=== PATIENT | male | born 1980 | race Caucasian/White ===

== ENCOUNTER → 2016-11-06 | Outpatient (CLI) | payer OTHER ==
--- NOTE | 2016-11-06 13:51 | RAD ---
HISTORY: Dislocated arm, complained of pain and grinding nor is when moving Study: Three views right shoulder Comparison: None Findings: Normal alignment. No acute fracture or dislocation. The soft tissues are unremarkable. The exam is l imited by lack of a true axillary view. There is an attempted scapular Y-view that appears unremarkab le. IMPRESSION: 1. No acute osseous abnormality. Reported By:
== END ==
LOC: RAD 13:10
PROVIDERS: ATTEND Internal Medicine
DX: S43.004A Unspecified dislocation of right shoulder joint, initial encounter (principal); X58.XXXA Exposure to other specified factors, initial encounter
CPT/HCPCS: 73030

== ENCOUNTER 2019-05-01 19:31 | Inpatient (IN) ==
[2019-05-01] MEDS ORDERED: PHARMACY CONSULT - VANCOMYCIN XX SCH (21:00)
[2019-05-01 21:56] LABS: BASOPHILS # (AUTO) 0.1 X10^3/uL (0.0-0.1); BASOPHILS % (AUTO) 0.7 % (0.2-1.0); EOSINOPHILS # (AUTO) 0.6 x10^3/uL (0.0-0.2); EOSINOPHILS % (AUTO) 7.2 % (0.9-2.9); HEMATOCRIT 33.8 % (42.0-54.0); HEMOGLOBIN 11.8 g/dL (13.5-18.0); LYMPHOCYTES % (AUTO) 22.6 % (21.0-51.0); MEAN CORPUSCULAR HEMOGLOBIN 30.8 pg (27.0-34.0); MEAN CORPUSCULAR HGB CONC 34.9 g/dL (33.0-35.0); MEAN CORPUSCULAR VOLUME 88.3 fL (80.0-100.0); MEAN PLATELET VOLUME 6.5 fL (7.4-11.0); MONOCYTES # (AUTO) 0.6 x10^3/uL (0.3-0.8); NEUTROPHILS # (AUTO) 5.6 x10^3/uL (2.2-4.8); NEUTROPHILS % (AUTO) 62.5 % (42.0-75.0); PLATELET COUNT 344 X10^3/uL (150.0-450.0); RED BLOOD COUNT 3.83 X10^6/uL (4.7-6.0); RED CELL DISTRIBUTION WIDTH 14.2 % (11.6-16.5)
[2019-05-01] MEDS ORDERED: VANCOMYCIN HCL IV ONE (22:00)
[2019-05-01] MEDS ORDERED: DEXTROSE 5% IV ONE (22:00)
[2019-05-01 22:07] LABS: ALANINE AMINOTRANSFERASE 29 Units/L (12-78); ALKALINE PHOSPHATASE 92 Units/L (46-116); ASPARTATE AMINO TRANSFERASE 23 Units/L (15-37); BLOOD UREA NITROGEN 12 mg/dL (7-18); CARBON DIOXIDE 28.1 mmol/L (21-32); CHLORIDE 102 mmol/L (98-107); COR CA(FOR HYPOALB) 9.8 mg/dL (8.5-10.1); CREATININE 1.28 mg/dL (0.70-1.30); SODIUM 138 mmol/L (136-145); TOTAL PROTEIN 7.4 g/dL (6.4-8.2); eGFR NON BLACK RACES > 60 (>60)
[2019-05-01] MEDS: NS 1000 ML 1,000 ML IV SCH (23:25)
[2019-05-02] MEDS ORDERED: ZOSYN VIAL 4.5 GRAMS 4.5 G in NS 100 ML IV + SPIKE MINIBAG* 100 ML IV SCH ×2
[2019-05-02] MEDS ORDERED: RESTORIL CAP 15 MG PO ONE (01:21)
[2019-05-02] MEDS ORDERED: NORCO 5/325 MG TAB ONE (01:21)
[2019-05-02] MEDS: NORCO 5/325 MG TAB PO PRN ×2 (01:25→07:30)
[2019-05-02] MEDS: RESTORIL CAP 15 MG PO PRN (01:25)
[2019-05-02 04:16] VITALS: BMI 31.2
[2019-05-02 04:44] LABS: BASOPHILS % (AUTO) 0.6 % (0.2-1.0); EOSINOPHILS # (AUTO) 0.7 x10^3/uL (0.0-0.2); EOSINOPHILS % (AUTO) 8.6 % (0.9-2.9); HEMATOCRIT 31.5 % (42.0-54.0); HEMOGLOBIN 10.8 g/dL (13.5-18.0); LYMPHOCYTES # (AUTO) 1.7 X10^3/uL (1.3-2.9); LYMPHOCYTES % (AUTO) 22.6 % (21.0-51.0); MEAN CORPUSCULAR HEMOGLOBIN 30.1 pg (27.0-34.0); MEAN CORPUSCULAR HGB CONC 34.4 g/dL (33.0-35.0); MEAN CORPUSCULAR VOLUME 87.5 fL (80.0-100.0); MEAN PLATELET VOLUME 6.5 fL (7.4-11.0); MONOCYTES # (AUTO) 0.6 x10^3/uL (0.3-0.8); NEUTROPHILS # (AUTO) 4.6 x10^3/uL (2.2-4.8); NEUTROPHILS % (AUTO) 60.2 % (42.0-75.0); PLATELET COUNT 327 X10^3/uL (150.0-450.0); RED CELL DISTRIBUTION WIDTH 14.2 % (11.6-16.5); WHITE BLOOD COUNT 7.6 X10^3/uL (3.6-10.0)
[2019-05-02 04:53] LABS: ALANINE AMINOTRANSFERASE 28 Units/L (12-78); ALBUMIN 2.7 g/dL (3.4-5.0); ALKALINE PHOSPHATASE 88 Units/L (46-116); ASPARTATE AMINO TRANSFERASE 21 Units/L (15-37); BLOOD UREA NITROGEN 12 mg/dL (7-18); CALCIUM 8.5 mg/dL (8.5-10.1); CHLORIDE 101 mmol/L (98-107); COR CA(FOR HYPOALB) 9.5 mg/dL (8.5-10.1); CREATININE 1.13 mg/dL (0.70-1.30); SODIUM 137 mmol/L (136-145); TOTAL PROTEIN 6.8 g/dL (6.4-8.2); eGFR NON BLACK RACES > 60 (>60)
[2019-05-02] MEDS ORDERED: KLOR-CON PO PRN (05:13)
[2019-05-02] MEDS ORDERED: POTASSIUM CHL 60 MEQ/NS 0.45% 500 ML IV PRN (05:13)
[2019-05-02] MEDS ORDERED: POTASSIUM CHLORIDE LIQ 20 MEQ UDC PO PRN (05:13)
[2019-05-02] MEDS ORDERED: K-RIDER 10 MEQ/NS 100 ML 10 MEQ/100 ML BAG IV PRN (05:13)
[2019-05-02] MEDS ORDERED: MAGNESIUM SULFATE 1 GRAM/100 mL PREMIX 1 GM/100 ML BAG IV PRN (05:13)
[2019-05-02] MEDS ORDERED: MICRO K EXTEN CAP 10 MEQ PO PRN (05:13)
[2019-05-02] MEDS ORDERED: POTASSIUM CHL 40 MEQ/NS 0.45% 500 ML IV PRN (05:13)
[2019-05-02] MEDS: K-DUR TAB 20 MEQ PO PRN (06:23)
[2019-05-02] MEDS ORDERED: NS 250 ML IV 250 ML IV ONE (08:08)
[2019-05-02] MEDS ORDERED: VANCOMYCIN HCL ONE (08:08)
[2019-05-02] MEDS: VANCOMYCIN HCL 1 G in D5W 250 ML IV 250 ML IV SCH ×3 (08:18→22:12)
[2019-05-02] MEDS ORDERED: VANCOMYCIN HCL 250 MG, VANCOMYCIN HCL 1 G in D5W 250 ML IV 250 ML IV SCH (09:00)
[2019-05-02] MEDS ORDERED: PERCOCET TAB 5/325 MG PO PRN ×2 (12:06→12:17)
[2019-05-02] MEDS ORDERED: NORCO 5/325 MG TAB PO PRN (12:10)
[2019-05-02] MEDS: SOMA TAB 350 MG PO PRN (12:20)
[2019-05-02] MEDS: NS 1000 ML 1,000 ML IV SCH ×3 (13:11→22:15)
[2019-05-02] MEDS: LYRICA CAP 150 mg PO SCH ×2 (14:01→22:12)
[2019-05-02] MEDS: TORADOL 30 MG VIAL IVP PRN ×2 (14:54→22:16)
[2019-05-02] MEDS: WELLBUTRIN XL 150 MG (DAILY) PO SCH ×2 (14:55→22:13)
[2019-05-02] MEDS: PERCOCET TAB 5/325 MG PO PRN ×2 (14:55→19:16)
[2019-05-02] MEDS: ZOSYN VIAL 4.5 GRAMS 4.5 G in NS 100 ML IV + SPIKE MINIBAG* 100 ML IV SCH ×2 (15:36→23:45)
--- NOTE | 2019-05-02 16:55 | DR.H&P ---
H&P - History & Physical for Day of: H&P Date: 05/01/19 - Chief Complaint Chief Complaint: LEFT FOOT REDNESS, SWELLING, WOUND - History of Present Illness History of Present Illness: IS A 38 YEAR OLD PATIENT OF OURS WHO PRESENTED TO THE HOSPITAL A DIRECT ADMISSION DUE TO CELLULITIS OF THE LEFT FOOT AND ANKLE. PATIENT REPORTS THAT HE LANCED HIS FOOT IN THREE DIFFERENT PLACES DUE TO ABSCESSES THAT CAME UP. HE REPORTS TAKING BACTRIM DS BID FOR THE PAST THREE DAYS. ON ARRIVAL TO THE HOSPITAL, VITALS WERE 97.5-118-52-100%-173/93. LABS WERE OBTAINED. ABNORMAL LAB VALUES INCLUDE THE FOLLOWING: RBC 3.83, HGB 11.8, HCT 33.8, ALBUMIN 3.0. WOUND AND BLOOD CULTURES WERE OBTAINED. HE WAS STARTED ON IV ZOSYN AND IV VANCOMYCIN. HE WAS ALSO STARTED ON NORMAL SALINE AT 80 ML/HR AND TORADOL 30MG IV Q6H PRN. WE WILL RESUME HIS HOME MEDICATIONS. OTHERWISE, WE WILL FOLLOW UP WITH AM LABS AND CONTINUE TO MONITOR. - Past Surgical History Surgical History: Ortho Surgery, Other - Family History Family Medical History: Hypertension - Social History Does patient currently use any type of tobacco product: Yes Have you used tobacco products in the last 12 months: Yes Type of Tobacco Use: Smokeless Alcohol Use: None Drug Use: None - Medications Home Medications: No Known Drug Allergies Allergy (Verified 09/08/17 14:11) CONTINUE taking the following medications bupropion HCl 150 mg PO BID 05/02/19 [History] carisoprodol [Soma] 350 mg PRN PRN 05/02/19 [History] clonazepam [Klonopin] 1 mg PO BID PRN 05/02/19 [History] dextroamphetamine-amphetamine [Adderall] 20 mg BID 05/02/19 [History] duloxetine 60 mg PO QHS 05/02/19 [History] oxycodone-acetaminophen 1 tab Q4H PRN 05/02/19 [History] prazosin 1 mg PO QHS 05/02/19 [History] pregabalin [Lyrica] 150 mg PO BID 05/02/19 [History] - Review of Systems Constitutional: Weakness Eyes: No Symptoms Reported ENT: No Symptoms Reported Respiratory: No Symptoms Reported Cardiovascular: No Symptoms Reported Gastrointestinal: No Symptoms Reported Genitourinary: No Symptoms Reported Musculoskeletal: See HPI, Leg Pain (BILATERAL ), Foot Pain Skin: See HPI, Wound (LEFT FOOT/ANKLE REDNESS, SWELLING, WOUND ) Neurological: Weakness - Physical Exam Vital Signs: Temperature 98.6 F Pulse Rate [Apical] 87 Respiratory Rate 18 Blood Pressure [Right Arm] 141/88 Blood Pressure 174/100 O2 Sat by Pulse Oximetry 99 Oriented: Normal Eyes: Normal Ear: Normal Nose: Normal Throat: Normal Respiratory: Clear Throughout Cardiovascular: Normal : Normal Auscultation: Bowel Sounds: Normal Palpation: Normal Tenderness: Normal Skin: Red, Tender, Hot, Wound (LEFT FOOT/ANKLE) Musculoskeletal: Right, Left, Foot, Tender Psychiatric: Normal Mood Description: Calm Affect: Normal Speech Pattern: Clear - Assessment/Plan (1) Cellulitis of left ankle Status: Acute Plan: IV VANCOMYCIN, IV ZOSYN, NORMAL SALINE AT 80 ML/HR AND TORADOL 30MG IV Q6H PRN, CONTINUE HOME MEDS - Allergies Allergies/Adverse Reactions: Allergies Allergy/AdvReac Type Severity Reaction Status Date / Time No Known Drug Allergies Allergy Verified 09/08/17 14:11
[2019-05-03] MEDS: PERCOCET TAB 5/325 MG PO PRN ×4 (00:06→23:49)
[2019-05-03] MEDS: RESTORIL CAP 15 MG PO PRN ×2 (00:06→23:50)
[2019-05-03] MEDS: SOMA TAB 350 MG PO PRN ×2 (00:06→23:51)
[2019-05-03] MEDS: KLONOPIN TAB 1 MG PO PRN ×2 (00:06→23:49)
[2019-05-03 04:38] LABS: BASOPHILS % (AUTO) 0.7 % (0.2-1.0); EOSINOPHILS # (AUTO) 0.6 x10^3/uL (0.0-0.2); EOSINOPHILS % (AUTO) 11.1 % (0.9-2.9); HEMATOCRIT 32.6 % (42.0-54.0); HEMOGLOBIN 11.2 g/dL (13.5-18.0); LYMPHOCYTES # (AUTO) 1.5 X10^3/uL (1.3-2.9); LYMPHOCYTES % (AUTO) 26.5 % (21.0-51.0); MEAN CORPUSCULAR HGB CONC 34.3 g/dL (33.0-35.0); MEAN CORPUSCULAR VOLUME 87.4 fL (80.0-100.0); MEAN PLATELET VOLUME 6.5 fL (7.4-11.0); MONOCYTES # (AUTO) 0.5 x10^3/uL (0.3-0.8); MONOCYTES % (AUTO) 8.2 % (0.0-13.0); NEUTROPHILS % (AUTO) 53.5 % (42.0-75.0); PLATELET COUNT 380 X10^3/uL (150.0-450.0); RED BLOOD COUNT 3.73 X10^6/uL (4.7-6.0); RED CELL DISTRIBUTION WIDTH 14.3 % (11.6-16.5); WHITE BLOOD COUNT 5.6 X10^3/uL (3.6-10.0)
[2019-05-03 04:45] LABS: ALANINE AMINOTRANSFERASE 35 Units/L (12-78); ALBUMIN 2.6 g/dL (3.4-5.0); ALKALINE PHOSPHATASE 91 Units/L (46-116); ASPARTATE AMINO TRANSFERASE 25 Units/L (15-37); BLOOD UREA NITROGEN 14 mg/dL (7-18); CALCIUM 8.4 mg/dL (8.5-10.1); CARBON DIOXIDE 29.3 mmol/L (21-32); CHLORIDE 104 mmol/L (98-107); COR CA(FOR HYPOALB) 9.5 mg/dL (8.5-10.1); CREATININE 1.05 mg/dL (0.70-1.30); SODIUM 139 mmol/L (136-145); TOTAL PROTEIN 6.9 g/dL (6.4-8.2); eGFR NON BLACK RACES > 60 (>60)
[2019-05-03 04:50] LABS: VANCOMYCIN,TROUGH 12.8 ug/mL (15-20)
[2019-05-03] MEDS: TORADOL 30 MG VIAL IVP PRN ×3 (05:17→21:05)
[2019-05-03] MEDS: NS 1000 ML 1,000 ML IV SCH ×2 (05:23→17:46)
[2019-05-03] MEDS ORDERED: PHARMACY COMMENT IV NR (05:30)
[2019-05-03] MEDS: VANCOMYCIN HCL 1 G in D5W 250 ML IV 250 ML IV SCH ×3 (07:22→21:01)
[2019-05-03] MEDS: ZOSYN VIAL 4.5 GRAMS 4.5 G in NS 100 ML IV + SPIKE MINIBAG* 100 ML IV SCH ×3 (09:00→22:08)
[2019-05-03] MEDS ORDERED: HYDROCHLOROTHIAZIDE 12.5 MG CAP PO SCH (10:00)
[2019-05-03] MEDS: WELLBUTRIN XL 150 MG (DAILY) PO SCH ×2 (10:33→20:25)
[2019-05-03] MEDS: LYRICA CAP 150 mg PO SCH ×2 (10:34→20:25)
[2019-05-03] MEDS: MAXZIDE 37.5/25 MG PO SCH (10:42)
[2019-05-04] MEDS: NS 1000 ML 1,000 ML IV SCH ×2 (00:53→15:07)
[2019-05-04] MEDS: VANCOMYCIN HCL 1 G in D5W 250 ML IV 250 ML IV SCH (05:13)
[2019-05-04] MEDS: TORADOL 30 MG VIAL IVP PRN ×3 (05:50→19:15)
[2019-05-04] MEDS: ZOSYN VIAL 4.5 GRAMS 4.5 G in NS 100 ML IV + SPIKE MINIBAG* 100 ML IV SCH ×3 (06:00→22:35)
[2019-05-04 06:24] LABS: BASOPHILS % (AUTO) 0.8 % (0.2-1.0); EOSINOPHILS # (AUTO) 0.7 x10^3/uL (0.0-0.2); EOSINOPHILS % (AUTO) 11.8 % (0.9-2.9); HEMATOCRIT 34.1 % (42.0-54.0); HEMOGLOBIN 11.6 g/dL (13.5-18.0); LYMPHOCYTES # (AUTO) 2.1 X10^3/uL (1.3-2.9); LYMPHOCYTES % (AUTO) 35.3 % (21.0-51.0); MEAN CORPUSCULAR HEMOGLOBIN 29.9 pg (27.0-34.0); MEAN CORPUSCULAR HGB CONC 33.9 g/dL (33.0-35.0); MEAN CORPUSCULAR VOLUME 88.1 fL (80.0-100.0); MEAN PLATELET VOLUME 6.4 fL (7.4-11.0); MONOCYTES # (AUTO) 0.6 x10^3/uL (0.3-0.8); MONOCYTES % (AUTO) 9.8 % (0.0-13.0); NEUTROPHILS # (AUTO) 2.5 x10^3/uL (2.2-4.8); NEUTROPHILS % (AUTO) 42.3 % (42.0-75.0); PLATELET COUNT 432 X10^3/uL (150.0-450.0); RED BLOOD COUNT 3.87 X10^6/uL (4.7-6.0); RED CELL DISTRIBUTION WIDTH 14.3 % (11.6-16.5)
[2019-05-04 06:34] LABS: ALANINE AMINOTRANSFERASE 38 Units/L (12-78); ALBUMIN 2.6 g/dL (3.4-5.0); ALKALINE PHOSPHATASE 86 Units/L (46-116); ASPARTATE AMINO TRANSFERASE 25 Units/L (15-37); BLOOD UREA NITROGEN 16 mg/dL (7-18); CALCIUM 8.7 mg/dL (8.5-10.1); CARBON DIOXIDE 30.5 mmol/L (21-32); CHLORIDE 104 mmol/L (98-107); COR CA(FOR HYPOALB) 9.8 mg/dL (8.5-10.1); CREATININE 1.01 mg/dL (0.70-1.30); SODIUM 141 mmol/L (136-145); TOTAL PROTEIN 6.8 g/dL (6.4-8.2); eGFR NON BLACK RACES > 60 (>60)
[2019-05-04] MEDS: WELLBUTRIN XL 150 MG (DAILY) PO SCH ×2 (08:53→21:26)
[2019-05-04] MEDS: LYRICA CAP 150 mg PO SCH ×2 (08:53→21:26)
[2019-05-04] MEDS: MAXZIDE 37.5/25 MG PO SCH (08:53)
[2019-05-04] MEDS: PERCOCET TAB 5/325 MG PO PRN ×2 (08:54→21:26)
[2019-05-04] MEDS: K-DUR TAB 20 MEQ PO PRN (08:55)
[2019-05-04 14:09] LABS: VANCOMYCIN,TROUGH 9.8 ug/mL (15-20)
[2019-05-04] MEDS ORDERED: VANCOMYCIN HCL ONE ×3 (14:35→21:27)
[2019-05-04] MEDS: VANCOMYCIN HCL 500 MG, VANCOMYCIN HCL 1 G in D5W 250 ML IV 250 ML IV SCH ×2 (14:45→21:40)
[2019-05-04] MEDS: CYMBALTA PO SCH (21:26)
[2019-05-04] MEDS ORDERED: D5W 250 ML IV 250 ML IV ONE (21:27)
[2019-05-04] MEDS: SOMA TAB 350 MG PO PRN (22:55)
[2019-05-04] MEDS: KLONOPIN TAB 1 MG PO PRN (22:55)
[2019-05-05] MEDS: TORADOL 30 MG VIAL IVP PRN ×4 (01:31→22:04)
[2019-05-05] MEDS: NS 1000 ML 1,000 ML IV SCH ×2 (03:24→16:10)
[2019-05-05] MEDS ORDERED: VANCOMYCIN HCL ONE ×4 (05:09→14:24)
[2019-05-05] MEDS ORDERED: D5W 250 ML IV 250 ML IV ONE (05:09)
[2019-05-05] MEDS: VANCOMYCIN HCL 500 MG, VANCOMYCIN HCL 1 G in D5W 250 ML IV 250 ML IV SCH ×2 (05:18→14:00)
[2019-05-05 06:34] LABS: BASOPHILS % (AUTO) 0.8 % (0.2-1.0); EOSINOPHILS # (AUTO) 0.7 x10^3/uL (0.0-0.2); EOSINOPHILS % (AUTO) 11.8 % (0.9-2.9); HEMATOCRIT 35.5 % (42.0-54.0); HEMOGLOBIN 11.9 g/dL (13.5-18.0); LYMPHOCYTES % (AUTO) 34.6 % (21.0-51.0); MEAN CORPUSCULAR HEMOGLOBIN 29.5 pg (27.0-34.0); MEAN CORPUSCULAR HGB CONC 33.4 g/dL (33.0-35.0); MEAN CORPUSCULAR VOLUME 88.5 fL (80.0-100.0); MEAN PLATELET VOLUME 6.2 fL (7.4-11.0); MONOCYTES # (AUTO) 0.6 x10^3/uL (0.3-0.8); MONOCYTES % (AUTO) 10.2 % (0.0-13.0); NEUTROPHILS # (AUTO) 2.5 x10^3/uL (2.2-4.8); NEUTROPHILS % (AUTO) 42.6 % (42.0-75.0); PLATELET COUNT 460 X10^3/uL (150.0-450.0); RED BLOOD COUNT 4.02 X10^6/uL (4.7-6.0); RED CELL DISTRIBUTION WIDTH 14.7 % (11.6-16.5); WHITE BLOOD COUNT 5.9 X10^3/uL (3.6-10.0)
[2019-05-05] MEDS: ZOSYN VIAL 4.5 GRAMS 4.5 G in NS 100 ML IV + SPIKE MINIBAG* 100 ML IV SCH ×3 (06:41→23:27)
[2019-05-05] MEDS ORDERED: NS 250 ML IV 250 ML IV ONE ×2 (06:46→14:24)
[2019-05-05 06:55] LABS: ALANINE AMINOTRANSFERASE 45 Units/L (12-78); ALBUMIN 2.7 g/dL (3.4-5.0); ALKALINE PHOSPHATASE 79 Units/L (46-116); ASPARTATE AMINO TRANSFERASE 26 Units/L (15-37); BLOOD UREA NITROGEN 18 mg/dL (7-18); CALCIUM 8.7 mg/dL (8.5-10.1); CARBON DIOXIDE 28.8 mmol/L (21-32); CHLORIDE 103 mmol/L (98-107); COR CA(FOR HYPOALB) 9.7 mg/dL (8.5-10.1); CREATININE 1.17 mg/dL (0.70-1.30); SODIUM 140 mmol/L (136-145); TOTAL PROTEIN 6.9 g/dL (6.4-8.2); eGFR NON BLACK RACES > 60 (>60)
[2019-05-05] MEDS: TAB-A-VITE PO SCH (08:46)
[2019-05-05] MEDS: WELLBUTRIN XL 150 MG (DAILY) PO SCH ×2 (08:46→21:18)
[2019-05-05] MEDS: MAXZIDE 37.5/25 MG PO SCH (08:46)
[2019-05-05] MEDS: LYRICA CAP 150 mg PO SCH ×2 (08:46→21:18)
[2019-05-05] MEDS: PERCOCET TAB 5/325 MG PO PRN ×2 (13:09→18:00)
[2019-05-05] MEDS ORDERED: PHARMACY COMMENT IV NR (13:30)
[2019-05-05 14:04] LABS: CREATININE 1.06 mg/dL (0.70-1.30)
--- NOTE | 2019-05-05 14:48 | PCM.PROG ---
Progress Note - Progress Note for Day of Date of Exam: 05/03/19 - Subjective Subjective: IS BEING TREATED FOR LEFT FOOT/ANKLE CELLULITIS. TODAY, HE IS ALERT AND ORIENTED, LYING IN BED ON MORNING ROUNDS. HE CONTINUES WITH ERYTHEMA AND 3+ PITTING EDEMA TO THE LEFT FOOT AND ANKLE. THERE IS SEROSANGUINEOUS DRAINAGE NOTED TO ALL WOUNDS. HIS VITALS THIS MORNING ARE: 97.6-92-18-98%-180/99. LABS WERE OBTAINED. ABNORMAL LAB VALUES INCLUDE THE FOLLOWING: RBC 3.73, HGB 11.2, HCT 32.6, GLUCOSE 101, CALCIUM 8.4, ALBUMIN 2.6. WOUND AND BLOOD CULTURES ARE PENDING. HE IS CURRENTLY RECEIVING IV VANCOMYCIN, IV ZOSYN, NS AT 80 ML/HR, TORADOL 30MG IV Q6H PRN, AND HOME MEDICATIONS WERE RESUMED. WE WILL CONTINUE WITH CURRENT PLAN OF CARE TODAY. OTHERWISE, WE PLAN TO FOLLOW UP WITH AM LABS AND CONTINUE TO MONITOR. - Past Medical Family Social History Past Med/Fam/Surg Hx: No changes since H&P Allergies: Allergies No Known Drug Allergies Allergy (Verified 09/08/17 14:11) - Review of Systems ROS: No change since H&P - Vital Signs and I&O's Vital Signs: Temperature 98.2 F Pulse Rate [Apical] 94 Respiratory Rate 20 Blood Pressure [Left Arm] 162/93 Blood Pressure [Right Arm] 163/105 Blood Pressure 174/100 O2 Sat by Pulse Oximetry 96 Intake and Output: Intake & Output 05/03/19 05/04/19 05/05/19 05/06/19 11:59 11:59 11:59 11:59 Intake Total 2280 / 2280 5322 / 5322 6340 / 6340 920 / 920 Balance 2280 / 2280 5322 / 5322 6340 / 6340 920 / 920 - Physical Exam Oriented: Normal Eyes: Normal Ear: Normal Nose: Normal Throat: Normal Respiratory: Normal, Generalized Cardiovascular: Normal, Edema : Normal Auscultation: Bowel Sounds: Normal Palpation: Normal Tenderness: Normal Skin: Red, Tender, Hot, Wound (LEFT FOOT/ANKLE) Musculoskeletal: Right, Left, Foot, Tender Psychiatric: Normal Mood Description: Calm Affect: Normal Speech Pattern: Clear - Laboratory and Diagnostics Result Diagrams: 05/05/19 06:02 05/05/19 13:07 Labs: 05/01/19 23:10 Foot - Left Gram Stain - Final 05/01/19 23:10 Foot - Left Wound Culture - Preliminary 05/01/19 21:35 Blood Blood Culture - Preliminary 05/01/19 21:30 Blood Blood Culture - Preliminary Laboratory WBC 5.9 X10^3/uL (3.6-10.0) 05/05/19 06:02 RBC 4.02 X10^6/uL (4.7-6.0) L 05/05/19 06:02 Hgb 11.9 g/dL (13.5-18.0) L 05/05/19 06:02 Hct 35.5 % (42.0-54.0) L 05/05/19 06:02 MCV 88.5 fL (80.0-100.0) 05/05/19 06:02 MCH 29.5 pg (27.0-34.0) 05/05/19 06:02 MCHC 33.4 g/dL (33.0-35.0) 05/05/19 06:02 RDW 14.7 % (11.6-16.5) 05/05/19 06:02 Plt Count 460 X10^3/uL (150.0-450.0) H 05/05/19 06:02 MPV 6.2 fL (7.4-11.0) L 05/05/19 06:02 Neut % (Auto) 42.6 % (42.0-75.0) 05/05/19 06:02 Lymph % (Auto) 34.6 % (21.0-51.0) 05/05/19 06:02 [place] % (Auto) 10.2 % (0.0-13.0) 05/05/19 06:02 Eos % (Auto) 11.8 % (0.9-2.9) H 05/05/19 06:02 Baso % (Auto) 0.8 % (0.2-1.0) 05/05/19 06:02 Neut # (Auto) 2.5 x10^3/uL (2.2-4.8) 05/05/19 06:02 Lymph # (Auto) 2.0 X10^3/uL (1.3-2.9) 05/05/19 06:02 [place] # (Auto) 0.6 x10^3/uL (0.3-0.8) 05/05/19 06:02 Eos # (Auto) 0.7 x10^3/uL (0.0-0.2) H 05/05/19 06:02 Baso # (Auto) 0.0 X10^3/uL (0.0-0.1) 05/05/19 06:02 Absolute Nucleated RBC 0.1 /100WBC 05/05/19 06:02 Sodium 140 mmol/L (136-145) 05/05/19 06:02 Corrected Sodium TNP 05/05/19 06:02 Potassium 4.0 mmol/L (3.5-5.1) 05/05/19 06:02 Chloride 103 mmol/L (98-107) 05/05/19 06:02 Carbon Dioxide 28.8 mmol/L (21-32) 05/05/19 06:02 BUN 18 mg/dL (7-18) 05/05/19 06:02 Creatinine 1.06 mg/dL (0.70-1.30) 05/05/19 13:07 Est GFR (MDRD) Af Amer > 60 (>60) 05/05/19 06:02 Est GFR (MDRD) Non-Af > 60 (>60) 05/05/19 06:02 Glucose 99 mg/dL (65-99) 05/05/19 06:02 Calcium 8.7 mg/dL (8.5-10.1) 05/05/19 06:02 Corrected Calcium 9.7 mg/dL (8.5-10.1) 05/05/19 06:02 Magnesium 2.0 mg/dL (1.7-2.9) 05/02/19 04:23 Total Bilirubin 0.10 mg/dL (0.2-1.0) L 05/05/19 06:02 AST 26 Units/L (15-37) 05/05/19 06:02 ALT 45 Units/L (12-78) 05/05/19 06:02 Alkaline Phosphatase 79 Units/L (46-116) 05/05/19 06:02 Total Protein 6.9 g/dL (6.4-8.2) 05/05/19 06:02 Albumin 2.7 g/dL (3.4-5.0) L 05/05/19 06:02 Globulin 4.2 g/dL (2.5-4.5) 05/05/19 06:02 Albumin/Globulin Ratio 0.6 Ratio (1.1-2.1) L 05/05/19 06:02 Vancomycin Trough 20.0 ug/mL (15-20) 05/05/19 13:07 - Plan (1) Cellulitis of left ankle Status: Acute Plan: IV VANCOMYCIN, IV ZOSYN, NORMAL SALINE AT 80 ML/HR AND TORADOL 30MG IV Q6H PRN, CONTINUE HOME MEDS
--- NOTE | 2019-05-05 18:40 | PCM.PROG ---
Progress Note - Progress Note for Day of Date of Exam: 05/05/19 - Subjective Subjective: IS BEING TREATED FOR LEFT FOOT/ANKLE CELLULITIS. TODAY, HE IS ALERT AND ORIENTED, LYING IN BED ON MORNING ROUNDS. HE CONTINUES WITH PAIN TO THE LEFT FOOT AND ANKLE. ON EXAMINATION, HEART IS REGULAR IN RATE AND RHYTHM. BILATERAL LUNGS ARE CLEAR TO AUSCULTATION. ABDOMEN IS ROUND, SOFT, AND NON- TENDER WITH NORMAL BOWEL SOUNDS NOTED IN ALL QUADRANTS. LEFT FOOT AND ANKLE CONTINUE WITH ERYTHEMA AND 2+ PITTING EDEMA. THERE IS SEROUS DRAINAGE NOTED TO ALL WOUNDS. HIS VITALS THIS MORNING ARE: 97.6-74-20-98%-131/75. LABS WERE OBTAINED. ABNORMAL LAB VALUES INCLUDE THE FOLLOWING: RBC 4.02, HGB 11.9, HCT 35.5, PLT COUNT 460, TOTAL BILI 0.10, ALBUMIN 2.7. WOUND AND BLOOD CULTURES ARE PENDING. HE IS CURRENTLY RECEIVING IV VANCOMYCIN, IV ZOSYN, NS AT 80 ML/HR, TORADOL 30MG IV Q6H PRN, AND HOME MEDICATIONS WERE RESUMED. WE WILL CONTINUE WITH CURRENT PLAN OF CARE TODAY. WE WILL ARRANGE FOR IV ANTIBIOTICS AT HOME. OTHERWISE, WE PLAN TO FOLLOW UP WITH AM LABS AND CONTINUE TO MONITOR. - Past Medical Family Social History Past Med/Fam/Surg Hx: No changes since H&P Allergies: Allergies No Known Drug Allergies Allergy (Verified 09/08/17 14:11) - Review of Systems ROS: No change since H&P - Vital Signs and I&O's Vital Signs: Temperature 98.6 F Pulse Rate [Apical] 86 Respiratory Rate 20 Blood Pressure [Left Arm] 133/95 Blood Pressure [Right Arm] 163/105 Blood Pressure 174/100 O2 Sat by Pulse Oximetry 99 Intake and Output: Intake & Output 05/03/19 05/04/19 05/05/19 05/06/19 11:59 11:59 11:59 11:59 Intake Total 2280 / 2280 5322 / 5322 6340 / 6340 1420 / 1420 Balance 2280 / 2280 5322 / 5322 6340 / 6340 1420 / 1420 - Physical Exam Oriented: Normal Eyes: Normal Ear: Normal Nose: Normal Throat: Normal Respiratory: Normal, Generalized Cardiovascular: Normal, Edema : Normal Auscultation: Bowel Sounds: Normal Tenderness: Normal Skin: Red, Tender, Hot, Wound (LEFT FOOT/ANKLE) Musculoskeletal: Right, Left, Foot, Tender Psychiatric: Normal Mood Description: Calm Affect: Normal Speech Pattern: Clear - Laboratory and Diagnostics Result Diagrams: 05/05/19 06:02 05/05/19 13:07 Labs: 05/01/19 23:10 Foot - Left Gram Stain - Final 05/01/19 23:10 Foot - Left Wound Culture - Preliminary 05/01/19 21:35 Blood Blood Culture - Preliminary 05/01/19 21:30 Blood Blood Culture - Preliminary Laboratory WBC 5.9 X10^3/uL (3.6-10.0) 05/05/19 06:02 RBC 4.02 X10^6/uL (4.7-6.0) L 05/05/19 06:02 Hgb 11.9 g/dL (13.5-18.0) L 05/05/19 06:02 Hct 35.5 % (42.0-54.0) L 05/05/19 06:02 MCV 88.5 fL (80.0-100.0) 05/05/19 06:02 MCH 29.5 pg (27.0-34.0) 05/05/19 06:02 MCHC 33.4 g/dL (33.0-35.0) 05/05/19 06:02 RDW 14.7 % (11.6-16.5) 05/05/19 06:02 Plt Count 460 X10^3/uL (150.0-450.0) H 05/05/19 06:02 MPV 6.2 fL (7.4-11.0) L 05/05/19 06:02 Neut % (Auto) 42.6 % (42.0-75.0) 05/05/19 06:02 Lymph % (Auto) 34.6 % (21.0-51.0) 05/05/19 06:02 [place] % (Auto) 10.2 % (0.0-13.0) 05/05/19 06:02 Eos % (Auto) 11.8 % (0.9-2.9) H 05/05/19 06:02 Baso % (Auto) 0.8 % (0.2-1.0) 05/05/19 06:02 Neut # (Auto) 2.5 x10^3/uL (2.2-4.8) 05/05/19 06:02 Lymph # (Auto) 2.0 X10^3/uL (1.3-2.9) 05/05/19 06:02 [place] # (Auto) 0.6 x10^3/uL (0.3-0.8) 05/05/19 06:02 Eos # (Auto) 0.7 x10^3/uL (0.0-0.2) H 05/05/19 06:02 Baso # (Auto) 0.0 X10^3/uL (0.0-0.1) 05/05/19 06:02 Absolute Nucleated RBC 0.1 /100WBC 05/05/19 06:02 Sodium 140 mmol/L (136-145) 05/05/19 06:02 Corrected Sodium TNP 05/05/19 06:02 Potassium 4.0 mmol/L (3.5-5.1) 05/05/19 06:02 Chloride 103 mmol/L (98-107) 05/05/19 06:02 Carbon Dioxide 28.8 mmol/L (21-32) 05/05/19 06:02 BUN 18 mg/dL (7-18) 05/05/19 06:02 Creatinine 1.06 mg/dL (0.70-1.30) 05/05/19 13:07 Est GFR (MDRD) Af Amer > 60 (>60) 05/05/19 06:02 Est GFR (MDRD) Non-Af > 60 (>60) 05/05/19 06:02 Glucose 99 mg/dL (65-99) 05/05/19 06:02 Calcium 8.7 mg/dL (8.5-10.1) 05/05/19 06:02 Corrected Calcium 9.7 mg/dL (8.5-10.1) 05/05/19 06:02 Magnesium 2.0 mg/dL (1.7-2.9) 05/02/19 04:23 Total Bilirubin 0.10 mg/dL (0.2-1.0) L 05/05/19 06:02 AST 26 Units/L (15-37) 05/05/19 06:02 ALT 45 Units/L (12-78) 05/05/19 06:02 Alkaline Phosphatase 79 Units/L (46-116) 05/05/19 06:02 Total Protein 6.9 g/dL (6.4-8.2) 05/05/19 06:02 Albumin 2.7 g/dL (3.4-5.0) L 05/05/19 06:02 Globulin 4.2 g/dL (2.5-4.5) 05/05/19 06:02 Albumin/Globulin Ratio 0.6 Ratio (1.1-2.1) L 05/05/19 06:02 Vancomycin Trough 20.0 ug/mL (15-20) 05/05/19 13:07 - Plan (1) Cellulitis of left ankle Status: Acute Plan: IV VANCOMYCIN, IV ZOSYN, NORMAL SALINE AT 80 ML/HR AND TORADOL 30MG IV Q6H PRN, CONTINUE HOME MEDS
--- NOTE | 2019-05-05 18:48 | PCM.PROG ---
Progress Note - Progress Note for Day of Date of Exam: 05/04/19 - Subjective Subjective: IS BEING TREATED FOR LEFT FOOT/ANKLE CELLULITIS. TODAY, HE IS ALERT AND ORIENTED, LYING IN BED ON MORNING ROUNDS. HE CONTINUES WITH PAIN TO THE LEFT FOOT AND ANKLE. ON EXAMINATION, HEART IS REGULAR IN RATE AND RHYTHM. BILATERAL LUNGS ARE CLEAR TO AUSCULTATION. ABDOMEN IS ROUND, SOFT, AND NON- TENDER WITH NORMAL BOWEL SOUNDS NOTED IN ALL QUADRANTS. LEFT FOOT AND ANKLE CONTINUE WITH ERYTHEMA AND 3+ PITTING EDEMA. THERE IS SEROUS DRAINAGE NOTED TO ALL WOUNDS. HIS VITALS THIS MORNING ARE: 98.1-98-20-94%-140/96. LABS WERE OBTAINED. ABNORMAL LAB VALUES INCLUDE THE FOLLOWING: RBC 3.87, HGB 11.6, HCT 34.1, GLUCOSE 102, TOTAL BILI 0.10, ALBUMIN 2.6. WOUND AND BLOOD CULTURES ARE PENDING. HE IS CURRENTLY RECEIVING IV VANCOMYCIN, IV ZOSYN, NS AT 80 ML/HR, TORADOL 30MG IV Q6H PRN, AND HOME MEDICATIONS WERE RESUMED. WE WILL CONTINUE WITH CURRENT PLAN OF CARE TODAY. OTHERWISE, WE PLAN TO FOLLOW UP WITH AM LABS AND CONTINUE TO MONITOR. - Past Medical Family Social History Past Med/Fam/Surg Hx: No changes since H&P Allergies: Allergies No Known Drug Allergies Allergy (Verified 09/08/17 14:11) - Review of Systems ROS: No change since H&P - Vital Signs and I&O's Vital Signs: Temperature 98.6 F Pulse Rate [Apical] 86 Respiratory Rate 20 Blood Pressure [Left Arm] 133/95 Blood Pressure [Right Arm] 163/105 Blood Pressure 174/100 O2 Sat by Pulse Oximetry 99 Intake and Output: Intake & Output 05/03/19 05/04/19 05/05/19 05/06/19 11:59 11:59 11:59 11:59 Intake Total 2280 / 2280 5322 / 5322 6340 / 6340 1420 / 1420 Balance 2280 / 2280 5322 / 5322 6340 / 6340 1420 / 1420 - Physical Exam Oriented: Normal Eyes: Normal Ear: Normal Nose: Normal Throat: Normal Respiratory: Normal, Generalized Cardiovascular: Normal, Edema : Normal Auscultation: Bowel Sounds: Normal Tenderness: Normal Skin: Red, Tender, Hot, Wound (LEFT FOOT/ANKLE) Musculoskeletal: Right, Left, Foot, Tender Psychiatric: Normal Mood Description: Calm Affect: Normal Speech Pattern: Clear - Laboratory and Diagnostics Result Diagrams: 05/05/19 06:02 05/05/19 13:07 Labs: 05/01/19 23:10 Foot - Left Gram Stain - Final 05/01/19 23:10 Foot - Left Wound Culture - Preliminary 05/01/19 21:35 Blood Blood Culture - Preliminary 05/01/19 21:30 Blood Blood Culture - Preliminary Laboratory WBC 5.9 X10^3/uL (3.6-10.0) 05/05/19 06:02 RBC 4.02 X10^6/uL (4.7-6.0) L 05/05/19 06:02 Hgb 11.9 g/dL (13.5-18.0) L 05/05/19 06:02 Hct 35.5 % (42.0-54.0) L 05/05/19 06:02 MCV 88.5 fL (80.0-100.0) 05/05/19 06:02 MCH 29.5 pg (27.0-34.0) 05/05/19 06:02 MCHC 33.4 g/dL (33.0-35.0) 05/05/19 06:02 RDW 14.7 % (11.6-16.5) 05/05/19 06:02 Plt Count 460 X10^3/uL (150.0-450.0) H 05/05/19 06:02 MPV 6.2 fL (7.4-11.0) L 05/05/19 06:02 Neut % (Auto) 42.6 % (42.0-75.0) 05/05/19 06:02 Lymph % (Auto) 34.6 % (21.0-51.0) 05/05/19 06:02 [place] % (Auto) 10.2 % (0.0-13.0) 05/05/19 06:02 Eos % (Auto) 11.8 % (0.9-2.9) H 05/05/19 06:02 Baso % (Auto) 0.8 % (0.2-1.0) 05/05/19 06:02 Neut # (Auto) 2.5 x10^3/uL (2.2-4.8) 05/05/19 06:02 Lymph # (Auto) 2.0 X10^3/uL (1.3-2.9) 05/05/19 06:02 [place] # (Auto) 0.6 x10^3/uL (0.3-0.8) 05/05/19 06:02 Eos # (Auto) 0.7 x10^3/uL (0.0-0.2) H 05/05/19 06:02 Baso # (Auto) 0.0 X10^3/uL (0.0-0.1) 05/05/19 06:02 Absolute Nucleated RBC 0.1 /100WBC 05/05/19 06:02 Sodium 140 mmol/L (136-145) 05/05/19 06:02 Corrected Sodium TNP 05/05/19 06:02 Potassium 4.0 mmol/L (3.5-5.1) 05/05/19 06:02 Chloride 103 mmol/L (98-107) 05/05/19 06:02 Carbon Dioxide 28.8 mmol/L (21-32) 05/05/19 06:02 BUN 18 mg/dL (7-18) 05/05/19 06:02 Creatinine 1.06 mg/dL (0.70-1.30) 05/05/19 13:07 Est GFR (MDRD) Af Amer > 60 (>60) 05/05/19 06:02 Est GFR (MDRD) Non-Af > 60 (>60) 05/05/19 06:02 Glucose 99 mg/dL (65-99) 05/05/19 06:02 Calcium 8.7 mg/dL (8.5-10.1) 05/05/19 06:02 Corrected Calcium 9.7 mg/dL (8.5-10.1) 05/05/19 06:02 Magnesium 2.0 mg/dL (1.7-2.9) 05/02/19 04:23 Total Bilirubin 0.10 mg/dL (0.2-1.0) L 05/05/19 06:02 AST 26 Units/L (15-37) 05/05/19 06:02 ALT 45 Units/L (12-78) 05/05/19 06:02 Alkaline Phosphatase 79 Units/L (46-116) 05/05/19 06:02 Total Protein 6.9 g/dL (6.4-8.2) 05/05/19 06:02 Albumin 2.7 g/dL (3.4-5.0) L 05/05/19 06:02 Globulin 4.2 g/dL (2.5-4.5) 05/05/19 06:02 Albumin/Globulin Ratio 0.6 Ratio (1.1-2.1) L 05/05/19 06:02 Vancomycin Trough 20.0 ug/mL (15-20) 05/05/19 13:07 - Plan (1) Cellulitis of left ankle Status: Acute Plan: IV VANCOMYCIN, IV ZOSYN, NORMAL SALINE AT 80 ML/HR AND TORADOL 30MG IV Q6H PRN, CONTINUE HOME MEDS
[2019-05-05] MEDS: CYMBALTA PO SCH (21:18)
[2019-05-05] MEDS: VANCOMYCIN HCL 250 MG, VANCOMYCIN HCL 1 G in D5W 250 ML IV 250 ML IV SCH (21:20)
[2019-05-06] MEDS: PERCOCET TAB 5/325 MG PO PRN ×4 (01:04→19:45)
[2019-05-06] MEDS: TORADOL 30 MG VIAL IVP PRN ×3 (03:56→17:26)
[2019-05-06] MEDS: NS 1000 ML 1,000 ML IV SCH ×2 (04:31→20:56)
[2019-05-06] MEDS: VANCOMYCIN HCL 250 MG, VANCOMYCIN HCL 1 G in D5W 250 ML IV 250 ML IV SCH ×3 (05:09→21:13)
[2019-05-06 06:24] LABS: BASOPHILS # (AUTO) 0.1 X10^3/uL (0.0-0.1); BASOPHILS % (AUTO) 1.1 % (0.2-1.0); EOSINOPHILS # (AUTO) 0.7 x10^3/uL (0.0-0.2); EOSINOPHILS % (AUTO) 13.3 % (0.9-2.9); HEMATOCRIT 34.4 % (42.0-54.0); HEMOGLOBIN 11.8 g/dL (13.5-18.0); LYMPHOCYTES # (AUTO) 2.1 X10^3/uL (1.3-2.9); LYMPHOCYTES % (AUTO) 39.1 % (21.0-51.0); MEAN CORPUSCULAR HEMOGLOBIN 30.4 pg (27.0-34.0); MEAN CORPUSCULAR HGB CONC 34.3 g/dL (33.0-35.0); MEAN CORPUSCULAR VOLUME 88.4 fL (80.0-100.0); MEAN PLATELET VOLUME 6.1 fL (7.4-11.0); MONOCYTES # (AUTO) 0.5 x10^3/uL (0.3-0.8); MONOCYTES % (AUTO) 8.9 % (0.0-13.0); NEUTROPHILS # (AUTO) 2.1 x10^3/uL (2.2-4.8); NEUTROPHILS % (AUTO) 37.6 % (42.0-75.0); PLATELET COUNT 497 X10^3/uL (150.0-450.0); RED BLOOD COUNT 3.89 X10^6/uL (4.7-6.0); RED CELL DISTRIBUTION WIDTH 14.4 % (11.6-16.5); WHITE BLOOD COUNT 5.5 X10^3/uL (3.6-10.0)
[2019-05-06] MEDS: ZOSYN VIAL 4.5 GRAMS 4.5 G in NS 100 ML IV + SPIKE MINIBAG* 100 ML IV SCH ×4 (06:39→23:04)
[2019-05-06 06:49] LABS: ALANINE AMINOTRANSFERASE 46 Units/L (12-78); ALBUMIN 2.8 g/dL (3.4-5.0); ALKALINE PHOSPHATASE 80 Units/L (46-116); ASPARTATE AMINO TRANSFERASE 25 Units/L (15-37); BLOOD UREA NITROGEN 16 mg/dL (7-18); CALCIUM 8.9 mg/dL (8.5-10.1); CARBON DIOXIDE 30.9 mmol/L (21-32); CHLORIDE 104 mmol/L (98-107); COR CA(FOR HYPOALB) 9.9 mg/dL (8.5-10.1); CREATININE 1.22 mg/dL (0.70-1.30); SODIUM 142 mmol/L (136-145); eGFR NON BLACK RACES > 60 (>60)
[2019-05-06] MEDS: WELLBUTRIN XL 150 MG (DAILY) PO SCH ×2 (10:21→20:00)
[2019-05-06] MEDS: MAXZIDE 37.5/25 MG PO SCH (10:21)
[2019-05-06] MEDS: TAB-A-VITE PO SCH (10:21)
[2019-05-06] MEDS: LYRICA CAP 150 mg PO SCH ×2 (10:21→20:00)
[2019-05-06] MEDS ORDERED: VANCOMYCIN HCL ONE ×4 (16:57→20:58)
[2019-05-06] MEDS ORDERED: D5W 250 ML IV 250 ML IV ONE ×2 (16:58→20:58)
--- NOTE | 2019-05-06 17:57 | PCM.PROG ---
Progress Note - Progress Note for Day of Date of Exam: 05/06/19 - Subjective Subjective: IS BEING TREATED FOR LEFT FOOT/ANKLE CELLULITIS. TODAY, HE IS ALERT AND ORIENTED, LYING IN BED ON MORNING ROUNDS. HE CONTINUES WITH PAIN TO THE LEFT FOOT AND ANKLE. SWELLING HAS SLIGHTLY DECREASED SINCE YESTERDAY. ON EXAMINATION, HEART IS REGULAR IN RATE AND RHYTHM. BILATERAL LUNGS ARE CLEAR TO AUSCULTATION. ABDOMEN IS ROUND, SOFT, AND NON-TENDER WITH NORMAL BOWEL SOUNDS NOTED IN ALL QUADRANTS. LEFT FOOT AND ANKLE CONTINUE WITH ERYTHEMA AND 1+ PITTING EDEMA. THERE IS A MINIMAL AMOUNT OF SEROUS DRAINAGE NOTED TO ALL WOUNDS. HIS VITALS THIS MORNING ARE: 98.0-86-20-97%-174/96. LABS WERE OBTAINED. ABNORMAL LAB VALUES INCLUDE THE FOLLOWING: RBC 3.89, HGB 11.8, HCT 34.4, PLT COUNT 497, ALBUMIN 2.8. WOUND CULTURES REPORT GROWTH OF ACINETOBACTER LWOFFII. HE IS CURRENTLY RECEIVING IV VANCOMYCIN, IV ZOSYN, NS AT 80 ML/HR, TORADOL 30MG IV Q6H PRN, AND HOME MEDICATIONS WERE RESUMED. WE WILL CONTINUE WITH CURRENT PLAN OF CARE TODAY. WE WILL ARRANGE FOR IV LEVAQUIN AT HOME. OTHERWISE, WE PLAN TO FOLLOW UP WITH AM LABS AND CONTINUE TO MONITOR. - Past Medical Family Social History Past Med/Fam/Surg Hx: No changes since H&P Allergies: Allergies No Known Drug Allergies Allergy (Verified 09/08/17 14:11) - Review of Systems ROS: No change since H&P - Vital Signs and I&O's Vital Signs: Temperature 97.9 F Pulse Rate [Right Brachial] 74 Pulse Rate [Apical] 82 Respiratory Rate 20 Blood Pressure [Left Arm] 133/95 Blood Pressure [Right Arm] 146/99 Blood Pressure 174/100 O2 Sat by Pulse Oximetry 99 Intake and Output: Intake & Output 05/04/19 05/05/19 05/06/19 05/07/19 11:59 11:59 11:59 11:59 Intake Total 5322 / 5322 6340 / 6340 4460 / 4460 1200 / 1200 Balance 5322 / 5322 6340 / 6340 4460 / 4460 1200 / 1200 - Physical Exam Oriented: Normal Eyes: Normal Ear: Normal Nose: Normal Throat: Normal Respiratory: Normal, Generalized Cardiovascular: Normal, Edema : Normal Auscultation: Bowel Sounds: Normal Tenderness: Normal Skin: Red, Tender, Hot, Wound (LEFT FOOT/ANKLE) Musculoskeletal: Right, Left, Foot, Tender Psychiatric: Normal Mood Description: Calm Affect: Normal Speech Pattern: Clear, Appropriate - Laboratory and Diagnostics Result Diagrams: 05/06/19 05:54 05/06/19 05:54 Labs: 05/01/19 23:10 Foot - Left Gram Stain - Final 05/01/19 23:10 Foot - Left Wound Culture - Final Acinetobacter Lwoffii 05/01/19 21:35 Blood Blood Culture - Preliminary 05/01/19 21:30 Blood Blood Culture - Preliminary Laboratory WBC 5.5 X10^3/uL (3.6-10.0) 05/06/19 05:54 RBC 3.89 X10^6/uL (4.7-6.0) L 05/06/19 05:54 Hgb 11.8 g/dL (13.5-18.0) L 05/06/19 05:54 Hct 34.4 % (42.0-54.0) L 05/06/19 05:54 MCV 88.4 fL (80.0-100.0) 05/06/19 05:54 MCH 30.4 pg (27.0-34.0) 05/06/19 05:54 MCHC 34.3 g/dL (33.0-35.0) 05/06/19 05:54 RDW 14.4 % (11.6-16.5) 05/06/19 05:54 Plt Count 497 X10^3/uL (150.0-450.0) H 05/06/19 05:54 MPV 6.1 fL (7.4-11.0) L 05/06/19 05:54 Neut % (Auto) 37.6 % (42.0-75.0) L 05/06/19 05:54 Lymph % (Auto) 39.1 % (21.0-51.0) 05/06/19 05:54 [place] % (Auto) 8.9 % (0.0-13.0) 05/06/19 05:54 Eos % (Auto) 13.3 % (0.9-2.9) H 05/06/19 05:54 Baso % (Auto) 1.1 % (0.2-1.0) H 05/06/19 05:54 Neut # (Auto) 2.1 x10^3/uL (2.2-4.8) L 05/06/19 05:54 Lymph # (Auto) 2.1 X10^3/uL (1.3-2.9) 05/06/19 05:54 Lares # (Auto) 0.5 x10^3/uL (0.3-0.8) 05/06/19 05:54 Eos # (Auto) 0.7 x10^3/uL (0.0-0.2) H 05/06/19 05:54 Baso # (Auto) 0.1 X10^3/uL (0.0-0.1) 05/06/19 05:54 Absolute Nucleated RBC 0.1 /100WBC 05/06/19 05:54 Sodium 142 mmol/L (136-145) 05/06/19 05:54 Corrected Sodium TNP 05/06/19 05:54 Potassium 4.5 mmol/L (3.5-5.1) 05/06/19 05:54 Chloride 104 mmol/L (98-107) 05/06/19 05:54 Carbon Dioxide 30.9 mmol/L (21-32) 05/06/19 05:54 BUN 16 mg/dL (7-18) 05/06/19 05:54 Creatinine 1.22 mg/dL (0.70-1.30) 05/06/19 05:54 Est GFR (MDRD) Af Amer > 60 (>60) 05/06/19 05:54 Est GFR (MDRD) Non-Af > 60 (>60) 05/06/19 05:54 Glucose 96 mg/dL (65-99) 05/06/19 05:54 Calcium 8.9 mg/dL (8.5-10.1) 05/06/19 05:54 Corrected Calcium 9.9 mg/dL (8.5-10.1) 05/06/19 05:54 Magnesium 2.0 mg/dL (1.7-2.9) 05/02/19 04:23 Total Bilirubin 0.20 mg/dL (0.2-1.0) 05/06/19 05:54 AST 25 Units/L (15-37) 05/06/19 05:54 ALT 46 Units/L (12-78) 05/06/19 05:54 Alkaline Phosphatase 80 Units/L (46-116) 05/06/19 05:54 Total Protein 7.0 g/dL (6.4-8.2) 05/06/19 05:54 Albumin 2.8 g/dL (3.4-5.0) L 05/06/19 05:54 Globulin 4.2 g/dL (2.5-4.5) 05/06/19 05:54 Albumin/Globulin Ratio 0.7 Ratio (1.1-2.1) L 05/06/19 05:54 Vancomycin Trough 20.0 ug/mL (15-20) 05/05/19 13:07 - Plan (1) Cellulitis of left ankle Status: Acute Plan: IV VANCOMYCIN, IV ZOSYN, NORMAL SALINE AT 80 ML/HR AND TORADOL 30MG IV Q6H PRN, CONTINUE HOME MEDS
[2019-05-06] MEDS: CYMBALTA PO SCH (20:00)
[2019-05-07] MEDS: KLONOPIN TAB 1 MG PO PRN ×2 (02:22→17:35)
[2019-05-07] MEDS: PERCOCET TAB 5/325 MG PO PRN ×4 (02:22→20:58)
[2019-05-07] MEDS: SOMA TAB 350 MG PO PRN ×2 (02:22→17:35)
[2019-05-07] MEDS ORDERED: VANCOMYCIN HCL ONE ×6 (04:36→20:55)
[2019-05-07] MEDS ORDERED: D5W 250 ML IV 250 ML IV ONE ×3 (04:37→20:55)
[2019-05-07] MEDS: VANCOMYCIN HCL 250 MG, VANCOMYCIN HCL 1 G in D5W 250 ML IV 250 ML IV SCH ×3 (05:06→21:05)
[2019-05-07] MEDS: ZOSYN VIAL 4.5 GRAMS 4.5 G in NS 100 ML IV + SPIKE MINIBAG* 100 ML IV SCH ×3 (06:09→22:01)
[2019-05-07] MEDS: TORADOL 30 MG VIAL IVP PRN ×3 (06:10→18:46)
[2019-05-07 06:15] LABS: BASOPHILS # (AUTO) 0.1 X10^3/uL (0.0-0.1); BASOPHILS % (AUTO) 0.7 % (0.2-1.0); EOSINOPHILS # (AUTO) 0.8 x10^3/uL (0.0-0.2); EOSINOPHILS % (AUTO) 9.4 % (0.9-2.9); HEMATOCRIT 33.9 % (42.0-54.0); HEMOGLOBIN 11.6 g/dL (13.5-18.0); LYMPHOCYTES # (AUTO) 2.4 X10^3/uL (1.3-2.9); MEAN CORPUSCULAR HEMOGLOBIN 30.2 pg (27.0-34.0); MEAN CORPUSCULAR HGB CONC 34.3 g/dL (33.0-35.0); MEAN CORPUSCULAR VOLUME 88.2 fL (80.0-100.0); MEAN PLATELET VOLUME 6.2 fL (7.4-11.0); MONOCYTES # (AUTO) 0.6 x10^3/uL (0.3-0.8); MONOCYTES % (AUTO) 7.5 % (0.0-13.0); NEUTROPHILS # (AUTO) 4.2 x10^3/uL (2.2-4.8); NEUTROPHILS % (AUTO) 52.4 % (42.0-75.0); PLATELET COUNT 506 X10^3/uL (150.0-450.0); RED BLOOD COUNT 3.85 X10^6/uL (4.7-6.0); RED CELL DISTRIBUTION WIDTH 14.6 % (11.6-16.5)
[2019-05-07 06:27] LABS: ALANINE AMINOTRANSFERASE 45 Units/L (12-78); ALBUMIN 2.9 g/dL (3.4-5.0); ALKALINE PHOSPHATASE 90 Units/L (46-116); ASPARTATE AMINO TRANSFERASE 23 Units/L (15-37); BLOOD UREA NITROGEN 15 mg/dL (7-18); CALCIUM 8.9 mg/dL (8.5-10.1); CHLORIDE 104 mmol/L (98-107); COR CA(FOR HYPOALB) 9.8 mg/dL (8.5-10.1); CREATININE 1.21 mg/dL (0.70-1.30); SODIUM 141 mmol/L (136-145); TOTAL PROTEIN 6.9 g/dL (6.4-8.2); eGFR NON BLACK RACES > 60 (>60)
[2019-05-07] MEDS: NS 1000 ML 1,000 ML IV SCH ×3 (06:41→20:51)
[2019-05-07] MEDS: TAB-A-VITE PO SCH (09:22)
[2019-05-07] MEDS: WELLBUTRIN XL 150 MG (DAILY) PO SCH ×2 (09:22→20:52)
[2019-05-07] MEDS: LYRICA CAP 150 mg PO SCH ×2 (09:22→20:52)
[2019-05-07] MEDS: MAXZIDE 37.5/25 MG PO SCH (09:22)
[2019-05-07] MEDS ORDERED: XYLOCAINE 1 % (PLAIN) ONE (14:18)
--- NOTE | 2019-05-07 15:37 | DR.UPDATE ---
H&P Update History and Physical Update: History and Physical reviewed and patient examined. Changes noted: NO Yes with the following:H&P reviewed, patient examined. Will place PICC for long-term abx therapy H&P Reviewed: Yes Patient was examined?: Yes Procedures (ALL) - Central Line Placement PCM.CLCO: written consent Time out performed: Yes Patient placed pm monitor/pulse ox: Yes MD prep: mask, gown, gloves, other Centrial line prep: chlorhexidine scrub, sterile drapes applied Local anesthsia used: lidocane 1% Ultrasound used for placement: Yes (left basilic id'd via U/S) Central line lumen ininserted: double (5fr powerpicc. trimmed to 50cm. 0cm exposed) Post procedure: good blood return, all ports aspirated, flushed,capped, sterile dressing applied Post procedure xray: tip oc catheter in good position Patient tolerated procedure: Yes Complications: none
--- NOTE | 2019-05-07 15:47 | RAD ---
CHEST, 1 VIEWHistory: PICC LINE PLACEMENTComparison: NoneFindings: Heart is normal in size. No focal infiltrate or significant effusion is identified. Left-sided PICC is well positioned, terminating over the cavoatrial junction without pneumothorax.Impression: Satisfactory left-sided PICC placement without pneumothorax or additional acute chest process.Electronically signed by: HUE ENRIQUEZ (May 07, 2019 15:46:12)
--- NOTE | 2019-05-07 17:48 | PCM.PROG ---
Progress Note - Progress Note for Day of Date of Exam: 05/07/19 - Subjective Subjective: IS BEING TREATED FOR LEFT FOOT/ANKLE CELLULITIS. TODAY, HE IS ALERT AND ORIENTED, LYING IN BED ON MORNING ROUNDS. HE CONTINUES WITH PAIN TO THE LEFT FOOT AND ANKLE. SWELLING HAS SLIGHTLY DECREASED SINCE YESTERDAY. ON EXAMINATION, HEART IS REGULAR IN RATE AND RHYTHM. BILATERAL LUNGS ARE CLEAR TO AUSCULTATION. ABDOMEN IS ROUND, SOFT, AND NON-TENDER WITH NORMAL BOWEL SOUNDS NOTED IN ALL QUADRANTS. LEFT FOOT AND ANKLE CONTINUE WITH ERYTHEMA AND 1+ PITTING EDEMA. THERE IS A MINIMAL AMOUNT OF SEROUS DRAINAGE NOTED TO ALL WOUNDS. HIS VITALS THIS MORNING ARE: 97.8-82-18-97%-143/77. LABS WERE OBTAINED. ABNORMAL LAB VALUES INCLUDE THE FOLLOWING: RBC 3.85, HGB 11.6, HCT 33.9, PLT COUNT 506, GLUCOSE 103, TOTAL BILI 0.10, ALBUMIN 2.9. WOUND CULTURES REPORT GROWTH OF ACINETOBACTER LWOFFII. HE IS CURRENTLY RECEIVING IV VANCOMYCIN, IV ZOSYN, NS AT 80 ML/HR, TORADOL 30MG IV Q6H PRN, AND HOME MEDICATIONS WERE RESUMED. WE WILL CONTINUE WITH CURRENT PLAN OF CARE TODAY. WE WILL ARRANGE FOR IV LEVAQUIN AND IV ROCEPHIN AT HOME. WE WILL CONSULT FOR A PICC LINE TODAY. OTHERWISE, WE PLAN TO FOLLOW UP WITH AM LABS AND CONTINUE TO MONITOR. - Past Medical Family Social History Past Med/Fam/Surg Hx: No changes since H&P Allergies: Allergies No Known Drug Allergies Allergy (Verified 09/08/17 14:11) - Review of Systems ROS: No change since H&P - Vital Signs and I&O's Vital Signs: Temperature 98.2 F Pulse Rate [Right Brachial] 102 Pulse Rate [Apical] 82 Respiratory Rate 20 Blood Pressure [Left Arm] 133/95 Blood Pressure [Right Arm] 136/77 Blood Pressure 174/100 O2 Sat by Pulse Oximetry 100 Intake and Output: Intake & Output 05/05/19 05/06/19 05/07/19 05/08/19 11:59 11:59 11:59 11:59 Intake Total 6340 / 6340 4460 / 4460 3510 / 3510 600 / 600 Balance 6340 / 6340 4460 / 4460 3510 / 3510 600 / 600 - Physical Exam Oriented: Normal Eyes: Normal Ear: Normal Nose: Normal Throat: Normal Respiratory: Normal, Generalized Cardiovascular: Normal, Edema : Normal Auscultation: Bowel Sounds: Normal Tenderness: Normal Skin: Red, Tender, Hot, Wound (LEFT FOOT/ANKLE) Musculoskeletal: Right, Left, Foot, Tender Psychiatric: Normal Mood Description: Calm Affect: Normal Speech Pattern: Clear, Appropriate - Laboratory and Diagnostics Result Diagrams: 05/07/19 05:50 05/07/19 05:50 Labs: 05/01/19 21:35 Blood Blood Culture - Final 05/01/19 21:30 Blood Blood Culture - Final 05/01/19 23:10 Foot - Left Gram Stain - Final 05/01/19 23:10 Foot - Left Wound Culture - Final Acinetobacter Lwoffii Laboratory WBC 8.0 X10^3/uL (3.6-10.0) 05/07/19 05:50 RBC 3.85 X10^6/uL (4.7-6.0) L 05/07/19 05:50 Hgb 11.6 g/dL (13.5-18.0) L 05/07/19 05:50 Hct 33.9 % (42.0-54.0) L 05/07/19 05:50 MCV 88.2 fL (80.0-100.0) 05/07/19 05:50 MCH 30.2 pg (27.0-34.0) 05/07/19 05:50 MCHC 34.3 g/dL (33.0-35.0) 05/07/19 05:50 RDW 14.6 % (11.6-16.5) 05/07/19 05:50 Plt Count 506 X10^3/uL (150.0-450.0) H 05/07/19 05:50 MPV 6.2 fL (7.4-11.0) L 05/07/19 05:50 Neut % (Auto) 52.4 % (42.0-75.0) 05/07/19 05:50 Lymph % (Auto) 30.0 % (21.0-51.0) 05/07/19 05:50 [place] % (Auto) 7.5 % (0.0-13.0) 05/07/19 05:50 Eos % (Auto) 9.4 % (0.9-2.9) H 05/07/19 05:50 Baso % (Auto) 0.7 % (0.2-1.0) 05/07/19 05:50 Neut # (Auto) 4.2 x10^3/uL (2.2-4.8) 05/07/19 05:50 Lymph # (Auto) 2.4 X10^3/uL (1.3-2.9) 05/07/19 05:50 [place] # (Auto) 0.6 x10^3/uL (0.3-0.8) 05/07/19 05:50 Eos # (Auto) 0.8 x10^3/uL (0.0-0.2) H 05/07/19 05:50 Baso # (Auto) 0.1 X10^3/uL (0.0-0.1) 05/07/19 05:50 Absolute Nucleated RBC 0.1 /100WBC 05/07/19 05:50 Sodium 141 mmol/L (136-145) 05/07/19 05:50 Corrected Sodium TNP 05/07/19 05:50 Potassium 4.3 mmol/L (3.5-5.1) 05/07/19 05:50 Chloride 104 mmol/L (98-107) 05/07/19 05:50 Carbon Dioxide 30.0 mmol/L (21-32) 05/07/19 05:50 BUN 15 mg/dL (7-18) 05/07/19 05:50 Creatinine 1.21 mg/dL (0.70-1.30) 05/07/19 05:50 Est GFR (MDRD) Af Amer > 60 (>60) 05/07/19 05:50 Est GFR (MDRD) Non-Af > 60 (>60) 05/07/19 05:50 Glucose 103 mg/dL (65-99) H 05/07/19 05:50 Calcium 8.9 mg/dL (8.5-10.1) 05/07/19 05:50 Corrected Calcium 9.8 mg/dL (8.5-10.1) 05/07/19 05:50 Magnesium 2.0 mg/dL (1.7-2.9) 05/02/19 04:23 Total Bilirubin 0.10 mg/dL (0.2-1.0) L 05/07/19 05:50 AST 23 Units/L (15-37) 05/07/19 05:50 ALT 45 Units/L (12-78) 05/07/19 05:50 Alkaline Phosphatase 90 Units/L (46-116) 05/07/19 05:50 Total Protein 6.9 g/dL (6.4-8.2) 05/07/19 05:50 Albumin 2.9 g/dL (3.4-5.0) L 05/07/19 05:50 Globulin 4.0 g/dL (2.5-4.5) 05/07/19 05:50 Albumin/Globulin Ratio 0.7 Ratio (1.1-2.1) L 05/07/19 05:50 Vancomycin Trough 20.0 ug/mL (15-20) 05/05/19 13:07 - Plan (1) Cellulitis of left ankle Status: Acute Plan: IV VANCOMYCIN, IV ZOSYN, NORMAL SALINE AT 80 ML/HR AND TORADOL 30MG IV Q6H PRN, CONTINUE HOME MEDS
[2019-05-07] MEDS: CYMBALTA PO SCH (20:52)
[2019-05-08] MEDS: TORADOL 30 MG VIAL IVP PRN ×4 (00:35→23:04)
[2019-05-08] MEDS ORDERED: D5W 250 ML IV 250 ML IV ONE ×3 (04:31→23:57)
[2019-05-08] MEDS ORDERED: VANCOMYCIN HCL ONE ×6 (04:31→23:57)
[2019-05-08] MEDS: VANCOMYCIN HCL 250 MG, VANCOMYCIN HCL 1 G in D5W 250 ML IV 250 ML IV SCH ×2 (05:00→14:19)
[2019-05-08] MEDS: ZOSYN VIAL 4.5 GRAMS 4.5 G in NS 100 ML IV + SPIKE MINIBAG* 100 ML IV SCH ×3 (06:01→23:02)
[2019-05-08 07:19] LABS: BASOPHILS # (AUTO) 0.1 X10^3/uL (0.0-0.1); BASOPHILS % (AUTO) 0.7 % (0.2-1.0); EOSINOPHILS # (AUTO) 0.6 x10^3/uL (0.0-0.2); EOSINOPHILS % (AUTO) 7.4 % (0.9-2.9); HEMATOCRIT 32.7 % (42.0-54.0); HEMOGLOBIN 11.4 g/dL (13.5-18.0); LYMPHOCYTES # (AUTO) 2.3 X10^3/uL (1.3-2.9); LYMPHOCYTES % (AUTO) 28.9 % (21.0-51.0); MEAN CORPUSCULAR HEMOGLOBIN 30.5 pg (27.0-34.0); MEAN CORPUSCULAR HGB CONC 34.9 g/dL (33.0-35.0); MEAN CORPUSCULAR VOLUME 87.3 fL (80.0-100.0); MEAN PLATELET VOLUME 6.1 fL (7.4-11.0); MONOCYTES # (AUTO) 0.6 x10^3/uL (0.3-0.8); MONOCYTES % (AUTO) 7.4 % (0.0-13.0); NEUTROPHILS # (AUTO) 4.5 x10^3/uL (2.2-4.8); NEUTROPHILS % (AUTO) 55.6 % (42.0-75.0); PLATELET COUNT 437 X10^3/uL (150.0-450.0); RED BLOOD COUNT 3.74 X10^6/uL (4.7-6.0); RED CELL DISTRIBUTION WIDTH 14.2 % (11.6-16.5); WHITE BLOOD COUNT 8.1 X10^3/uL (3.6-10.0)
[2019-05-08 07:24] LABS: ALANINE AMINOTRANSFERASE 44 Units/L (12-78); ALBUMIN 2.6 g/dL (3.4-5.0); ALKALINE PHOSPHATASE 82 Units/L (46-116); ASPARTATE AMINO TRANSFERASE 23 Units/L (15-37); BLOOD UREA NITROGEN 17 mg/dL (7-18); CALCIUM 8.4 mg/dL (8.5-10.1); CARBON DIOXIDE 28.3 mmol/L (21-32); CHLORIDE 105 mmol/L (98-107); COR CA(FOR HYPOALB) 9.5 mg/dL (8.5-10.1); CREATININE 1.12 mg/dL (0.70-1.30); SODIUM 139 mmol/L (136-145); eGFR NON BLACK RACES > 60 (>60)
[2019-05-08] MEDS: LYRICA CAP 150 mg PO SCH ×2 (09:16→21:13)
[2019-05-08] MEDS: TAB-A-VITE PO SCH (09:17)
[2019-05-08] MEDS: MAXZIDE 37.5/25 MG PO SCH (09:17)
[2019-05-08] MEDS: WELLBUTRIN XL 150 MG (DAILY) PO SCH ×2 (09:17→21:13)
[2019-05-08] MEDS: PERCOCET TAB 5/325 MG PO PRN ×2 (12:05→21:14)
[2019-05-08] MEDS: NS 1000 ML 1,000 ML IV SCH ×2 (12:06→22:02)
[2019-05-08] MEDS: CYMBALTA PO SCH (21:12)
[2019-05-08] MEDS ORDERED: PHARMACY COMMENT IV NR (21:30)
[2019-05-08] MEDS: PEPCID TAB 20 MG PO SCH (22:01)
[2019-05-08 23:15] LABS: CREATININE 1.35 mg/dL (0.70-1.30); VANCOMYCIN,TROUGH 19.6 ug/mL (15-20)
[2019-05-09] MEDS: VANCOMYCIN HCL 250 MG, VANCOMYCIN HCL 1 G in D5W 250 ML IV 250 ML IV SCH ×2 (00:04→06:23)
[2019-05-09] MEDS ORDERED: VANCOMYCIN HCL ONE ×2 (00:46)
[2019-05-09] MEDS ORDERED: D5W 250 ML IV 250 ML IV ONE (00:46)
[2019-05-09] MEDS: PERCOCET TAB 5/325 MG PO PRN ×3 (01:30→12:03)
[2019-05-09] MEDS: RESTORIL CAP 15 MG PO PRN (01:31)
[2019-05-09 06:18] LABS: BASOPHILS # (AUTO) 0.1 X10^3/uL (0.0-0.1); BASOPHILS % (AUTO) 0.9 % (0.2-1.0); EOSINOPHILS # (AUTO) 0.7 x10^3/uL (0.0-0.2); EOSINOPHILS % (AUTO) 9.3 % (0.9-2.9); HEMATOCRIT 33.1 % (42.0-54.0); HEMOGLOBIN 11.3 g/dL (13.5-18.0); LYMPHOCYTES # (AUTO) 2.6 X10^3/uL (1.3-2.9); LYMPHOCYTES % (AUTO) 34.6 % (21.0-51.0); MEAN CORPUSCULAR HGB CONC 34.2 g/dL (33.0-35.0); MEAN CORPUSCULAR VOLUME 87.7 fL (80.0-100.0); MEAN PLATELET VOLUME 6.3 fL (7.4-11.0); MONOCYTES # (AUTO) 0.7 x10^3/uL (0.3-0.8); MONOCYTES % (AUTO) 9.1 % (0.0-13.0); NEUTROPHILS # (AUTO) 3.4 x10^3/uL (2.2-4.8); NEUTROPHILS % (AUTO) 46.1 % (42.0-75.0); PLATELET COUNT 459 X10^3/uL (150.0-450.0); RED BLOOD COUNT 3.78 X10^6/uL (4.7-6.0); RED CELL DISTRIBUTION WIDTH 14.1 % (11.6-16.5); WHITE BLOOD COUNT 7.4 X10^3/uL (3.6-10.0)
[2019-05-09] MEDS: ZOSYN VIAL 4.5 GRAMS 4.5 G in NS 100 ML IV + SPIKE MINIBAG* 100 ML IV SCH (06:23)
[2019-05-09 06:42] LABS: ALANINE AMINOTRANSFERASE 44 Units/L (12-78); ALBUMIN 2.9 g/dL (3.4-5.0); ALKALINE PHOSPHATASE 89 Units/L (46-116); ASPARTATE AMINO TRANSFERASE 24 Units/L (15-37); BLOOD UREA NITROGEN 14 mg/dL (7-18); CALCIUM 8.5 mg/dL (8.5-10.1); CARBON DIOXIDE 26.2 mmol/L (21-32); CHLORIDE 103 mmol/L (98-107); COR CA(FOR HYPOALB) 9.4 mg/dL (8.5-10.1); CREATININE 1.12 mg/dL (0.70-1.30); SODIUM 139 mmol/L (136-145); TOTAL PROTEIN 6.7 g/dL (6.4-8.2); eGFR NON BLACK RACES > 60 (>60)
[2019-05-09] MEDS: PEPCID TAB 20 MG PO SCH ×2 (07:47→09:59)
[2019-05-09] MEDS: MAXZIDE 37.5/25 MG PO SCH ×2 (07:47→09:59)
[2019-05-09] MEDS: TAB-A-VITE PO SCH ×2 (07:47→09:59)
[2019-05-09] MEDS: LYRICA CAP 150 mg PO SCH ×2 (07:48→09:58)
[2019-05-09] MEDS: WELLBUTRIN XL 150 MG (DAILY) PO SCH ×2 (07:48→09:59)
[2019-05-09] MEDS: TORADOL 30 MG VIAL IVP PRN (09:52)
[2019-05-09] MEDS ORDERED: ROCEPHIN VIAL 1 GRAM 1 G in NS 100 ML IV + SPIKE MINIBAG* 100 ML IV ONE (09:58)
[2019-05-09] MEDS ORDERED: LEVAQUIN PREMIX IV 750 MG 750 MG/150 ML BAG IV ONE (09:58)
[2019-05-09 12:23] VITALS: BP 139/85
== END 2019-05-09 13:30 | disposition home or self-care (01) | DRG 603 ==
LOC: OBS 20:28 → MED/SURG 05-02 15:00
PROVIDERS: ADMIT Internal Medicine; ATTEND Internal Medicine
DX: L03.116 Cellulitis of left lower limb; B96.89 Other specified bacterial agents as the cause of diseases classified elsewhere
CPT/HCPCS: 36415; 71010; 71045; 80053; 80202; 82565; 83735; 85025; 87040; 87070; 87075; 87077; 87186; 87205; A4216; A4222; J0696; J1642; J1885; J1956; J2543; J3370; J7030; J7050; J7060; S0106

== ENCOUNTER 2019-08-31 17:53 | Observation (INO) ==
[2019-08-31 18:05] VITALS: BMI 32.1
--- NOTE | 2019-08-31 18:40 | DR.EXTPAIN ---
HPI Time seen Time Seen by Provider: 08/31/19 18:20 PCP Primary Care Physician: gunjan wilson HPI Comment HPI Comment: PATIENT IS 39YR OLD MALE THAT HAVE INDWELLING PICC LINE THAT IS OUT PARTIALLY. CURRENTLLY ON VANCONYCIN AND CEFEPRIME FOR CELLULITIS AND OSTEOMYELITIS LLE. Complaint/Symptoms Chief Complaint Doctor Comments: PICC LINE [facility] AND IS ON IV ANTIBIOTICS. Chief Complaint:: pt stated his home health nurse told him to come to the er cause he stated his picc line had came out over 10 inches. pt stated the [place]. COVID-19 Coronavirus risk:travel/contact w/high risk person: No Has patient experienced Coronavirus symptoms: No Nurses notes reviewed Nurses Notes Review: Yes Source History Provided: Patient Mode of arrival Mode of Arrival: Ambulatory Timing Onset of Chief Complaint: 08/30/19 Context History of: Arthritis Associated signs and symptoms Associated Signs and Symptoms: Pain PMH PMH Past Medical History: Yes Past Medical History: Hypertension Past Surgical History: Yes Surgical History: Ortho Surgery and Other Family History History of Family Medical Conditions: Yes Family Medical History: Hypertension Social History Does patient currently use any type of tobacco product: No Have you used tobacco products in the last 12 months: No Type of Tobacco Use: None Does any household member use tobacco: No Alcohol Use: None Do you use any recreational Drugs:: No Lives With: Family Lives Where: Home Travel Risk Coronavirus risk:travel/contact w/high risk person: No Has patient experienced Coronavirus symptoms: No Infectious screening In the last 2 months have you had wt loss of >10#?: NO Have you had fever, night sweats or hemotysis?: No Have you traveled outside the country in the last 6 months?: No Isolation: Standard ROS Review of Systems Constitutional: No Symptoms Reported and See HPI; negative Fever, Weakness and Fatigue Eyes: No Symptoms Reported and See HPI ENTM: No Symptoms Reported and See HPI; negative Ear Pain, Nose Discharge, Nose Congestion and Throat Pain Respiratoy: No Symptoms Reported and See HPI; negative Moist Cough, Short of Breath and Wheezing Cardiovascular: No Symptoms Reported and See HPI; negative Chest Pain, Edema and Palpitations Gastrointestinal/Abdominal: No Symptoms Reported and See HPI; negative Abdominal Pain, Diarrhea and Vomiting Genitourinary: No Symptoms Reported and See HPI; negative Dysuria, Frequency and Hematuria Neurological: No Symptoms Reported and See HPI; negative Weakness and Dizziness Musculoskeletal: See HPI, Elbow, Leg (DRESSING WITH WOUND VAC RT.) and Foot; negative Back Pain and Muscle Pain Integumentary: No Symptoms Reported and See HPI Hematologic/Lymphatic: No Symptoms Reported and See HPI Endocrine: No Symptoms Reported and See HPI Psychiatric: No Symptoms Reported and See HPI All Other Systems: Reviewed and Negative PE Vital Signs Vitals: Temperature 98.6 F Pulse Rate 97 Respiratory Rate 18 Blood Pressure [Left Arm] 160/89 Blood Pressure 132/81 O2 Sat by Pulse Oximetry 97 General Limitations: No Limitations General Appearance: Alert and In No Apparent Distress Head Head Exam: Normal Inspection Eyes Eye exam: Normal Appearance and PERRL; negative Scleral Icterus and Conjunctival Injection ENT ENT Exam: Normal Exam, Normal Oropharynx, Normal External Ear Exam and TM's Normal Bilaterally Neck Neck Exam: Normal Inspection and Trachea Midline; negative Tenderness and Lymphadenopathy Chest Chest Inspection: Normal Inspection and Symmetric Chest Wall Rise; negative Tenderness Respiratory Respiratory Exam: Normal Lung Sounds Bilat; negative Accessory Muscle Use, Chest Wall Tenderness and Respiratory Distress Respiratory Exam: Bilateral: Clear to Auscultation Cardiovascular Cardiovascular Exam: Regular Rate and Normal Rhythm Abdominal Exam Abdominal Exam: Normal Inspection, Normal Bowel Sounds and Soft; negative Tenderness Extremities Extremities Exam: Tenderness (LEFT LEG AND FOOT INFECTION WITH DRESSING AND INDWELLING WOUND VAC.) Back Back Exam: Normal Inspection; negative (R) CVA Tenderness and (L) CVA Tenderness Neurological Neurological Exam: Alert, Oriented X3 and CN II-XII Intact Psychiatric Psychiatric Exam: Normal Affect and Normal Mood Skin Skin Exam: Warm, Dry, Intact and Normal Color MDM Differential Diagnosis Differential Diagnosis: Other (CELLULITIS LLE, OSTEOMYELITIS LEFT LEG, PICC LINE OUT.) COURSE Treatment Treatment: SEE ORDERS. Consultation Consultation Comments: DISCUSSED PATIENT WITH DR. HERMOSILLO. HE WILL ADMIT PATIENT. ROR Labs Reviewed Laboratory Results Reviewed?: Yes Result Diagrams: 09/01/19 04:28 09/01/19 04:28 Laboratory: WBC 8.6 X10^3/uL (3.6-10.0) 08/31/19 21:13 RBC 3.90 X10^6/uL (4.7-6.0) L 08/31/19 21:13 Hgb 10.1 g/dL (13.5-18.0) L 08/31/19 21:13 Hct 30.3 % (42.0-54.0) L 08/31/19 21:13 MCV 77.8 fL (80.0-100.0) L 08/31/19 21:13 MCH 25.8 pg (27.0-34.0) L 08/31/19 21:13 MCHC 33.2 g/dL (33.0-35.0) 08/31/19 21:13 RDW 14.5 % (11.6-16.5) 08/31/19 21:13 Plt Count 576 X10^3/uL (150.0-450.0) H 08/31/19 21:13 Plt Count Comment Increased (ADEQUATE) 08/31/19 21:13 MPV 6.8 fL (7.4-11.0) L 08/31/19 21:13 Neut % (Auto) 51.4 % (42.0-75.0) 08/31/19 21:13 Lymph % (Auto) 32.2 % (21.0-51.0) 08/31/19 21:13 [place] % (Auto) 11.2 % (0.0-13.0) 08/31/19 21:13 Eos % (Auto) 4.4 % (0.9-2.9) H 08/31/19 21:13 Baso % (Auto) 0.8 % (0.2-1.0) 08/31/19 21:13 Neut # (Auto) 4.4 x10^3/uL (2.2-4.8) 08/31/19 21:13 Lymph # (Auto) 2.8 X10^3/uL (1.3-2.9) 08/31/19 21:13 [place] # (Auto) 1.0 x10^3/uL (0.3-0.8) H 08/31/19 21:13 Eos # (Auto) 0.4 x10^3/uL (0.0-0.2) H 08/31/19 21:13 Baso # (Auto) 0.1 X10^3/uL (0.0-0.1) 08/31/19 21:13 Absolute Nucleated RBC 0.2 /100WBC 08/31/19 21:13 Plt Morphology Comment Normal (NORMAL) 08/31/19 21:13 RBC Morphology Abnormal (NORMAL) 08/31/19 21:13 Hypochromasia Slight A 08/31/19 21:13 Sodium 140 mmol/L (136-145) 08/31/19 21:13 Corrected Sodium TNP 08/31/19 21:13 Potassium 4.0 mmol/L (3.5-5.1) 08/31/19 21:13 Chloride 104 mmol/L (98-107) 08/31/19 21:13 Carbon Dioxide 29.6 mmol/L (21-32) 08/31/19 21:13 BUN 13 mg/dL (7-18) 08/31/19 21:13 Creatinine 1.08 mg/dL (0.70-1.30) 08/31/19 21:13 Est GFR (MDRD) Af Amer > 60 (>60) 08/31/19 21:13 Est GFR (MDRD) Non-Af > 60 (>60) 08/31/19 21:13 Glucose 102 mg/dL (65-99) H 08/31/19 21:13 Calcium 9.3 mg/dL (8.5-10.1) 08/31/19 21:13 Corrected Calcium TNP 08/31/19 21:13 Total Bilirubin 0.10 mg/dL (0.2-1.0) L 08/31/19 21:13 AST 33 Units/L (15-37) 08/31/19 21:13 ALT 43 Units/L (12-78) 08/31/19 21:13 Alkaline Phosphatase 84 Units/L (46-116) 08/31/19 21:13 Total Protein 8.0 g/dL (6.4-8.2) 08/31/19 21:13 Albumin 3.4 g/dL (3.4-5.0) 08/31/19 21:13 Globulin 4.6 g/dL (2.5-4.5) H 08/31/19 21:13 Albumin/Globulin Ratio 0.7 Ratio (1.1-2.1) L 08/31/19 21:13 Vancomycin Trough 16.8 ug/mL (15-20) 08/31/19 21:13 XRAY XRAY Interpreted by: Radiologist (REPORT NOTED AND DISCUSS) Opioid Opioid Risk Tool Age (Christiano box if 16-45): No History of Preadolescent Sexual Abuse: No Total: 0 Total Score Risk Category: Low Risk Copyright: Paolo MEYERS predicting aberrant behaviors Diagnosis Discharge Problem: Cellulitis of left leg, Osteomyelitis of ankle, left, acute, Displacement of peripherally inserted central catheter (PICC) Instructions Instructions: PICC Removal, Adult PICC Insertion, Care After PICC Home Care Guide Forms: Excuse From Work or School Precautions for COVID19 Patient Portal Social Distancing
--- NOTE | 2019-08-31 19:53 | RAD ---
HISTORYPatient stated his home health nurse told him to come to the er cause he stated his picc line had came out over 10 inches. [facility] [place] [facility].FINDINGSThe trachea is midline. The cardiac silhouette is unremarkable. The lungs are clear of consolidation, focal infiltrate, effusion or pneumothorax. The bony thorax is unremarkable. A PICC line catheter is not identified.IMPRESSION1. No evidence of acute cardiopulmonary abnormality.2. No evidence of PICC line catheter on the current images.Electronically signed by: BOOKER MCNULTY (Aug 31, 2019 19:51:18)
[2019-08-31 21:26] LABS: BASOPHILS # (AUTO) 0.1 X10^3/uL (0.0-0.1); BASOPHILS % (AUTO) 0.8 % (0.2-1.0); EOSINOPHILS # (AUTO) 0.4 x10^3/uL (0.0-0.2); EOSINOPHILS % (AUTO) 4.4 % (0.9-2.9); HEMATOCRIT 30.3 % (42.0-54.0); HEMOGLOBIN 10.1 g/dL (13.5-18.0); LYMPHOCYTES # (AUTO) 2.8 X10^3/uL (1.3-2.9); LYMPHOCYTES % (AUTO) 32.2 % (21.0-51.0); MEAN CORPUSCULAR HEMOGLOBIN 25.8 pg (27.0-34.0); MEAN CORPUSCULAR HGB CONC 33.2 g/dL (33.0-35.0); MEAN CORPUSCULAR VOLUME 77.8 fL (80.0-100.0); MEAN PLATELET VOLUME 6.8 fL (7.4-11.0); MONOCYTES % (AUTO) 11.2 % (0.0-13.0); NEUTROPHILS # (AUTO) 4.4 x10^3/uL (2.2-4.8); NEUTROPHILS % (AUTO) 51.4 % (42.0-75.0); PLATELET COUNT 576 X10^3/uL (150.0-450.0); RED CELL DISTRIBUTION WIDTH 14.5 % (11.6-16.5); WHITE BLOOD COUNT 8.6 X10^3/uL (3.6-10.0)
[2019-08-31 21:32] LABS: ALANINE AMINOTRANSFERASE 43 Units/L (12-78); ALBUMIN 3.4 g/dL (3.4-5.0); ALKALINE PHOSPHATASE 84 Units/L (46-116); ASPARTATE AMINO TRANSFERASE 33 Units/L (15-37); BLOOD UREA NITROGEN 13 mg/dL (7-18); CALCIUM 9.3 mg/dL (8.5-10.1); CARBON DIOXIDE 29.6 mmol/L (21-32); CHLORIDE 104 mmol/L (98-107); CREATININE 1.08 mg/dL (0.70-1.30); SODIUM 140 mmol/L (136-145); eGFR NON BLACK RACES > 60 (>60)
[2019-08-31 21:38] LABS: HYPOCHROMASIA SLIGHT; PLATELET MORPHOLOGY COMMENT NORMAL (NORMAL)
[2019-08-31 21:50] LABS: VANCOMYCIN,TROUGH 16.8 ug/mL (15-20)
[2019-08-31] MEDS ORDERED: ZOFRAN TAB 4 MG PO PRN (21:51)
[2019-08-31] MEDS ORDERED: MOTRIN TAB 600 MG PO PRN (21:51)
[2019-08-31] MEDS ORDERED: PHARMACY CONSULT - VANCOMYCIN XX SCH (23:45)
[2019-08-31] MEDS ORDERED: MAXIPIME 2 GM ONE (23:50)
[2019-08-31] MEDS ORDERED: VANCOMYCIN HCL ONE (23:51)
[2019-08-31] MEDS ORDERED: NS 500 ML IV 500 ML IV ONE (23:51)
[2019-08-31] MEDS ORDERED: NS 100 ML IV + SPIKE MINIBAG* 100 ML IV ONE (23:52)
[2019-08-31] MEDS ORDERED: D5W 250 ML IV 250 ML IV ONE (23:52)
[2019-09-01] MEDS ORDERED: VANCOMYCIN HCL ONE (00:03)
[2019-09-01] MEDS: MAXIPIME VIAL 2 GRAMS 2 G in NS 100 ML IV + SPIKE MINIBAG* 100 ML IV SCH ×2 (00:15→06:01)
[2019-09-01] MEDS: VANCOMYCIN HCL 250 MG, VANCOMYCIN HCL 1 G in D5W 250 ML IV 250 ML IV SCH ×2 (00:56→09:37)
[2019-09-01] MEDS ORDERED: MAXIPIME 2 GM ONE (05:40)
[2019-09-01] MEDS ORDERED: NS 100 ML IV 100 ML IV ONE (05:40)
[2019-09-01 06:06] LABS: BASOPHILS % (AUTO) 0.7 % (0.2-1.0); EOSINOPHILS # (AUTO) 0.4 x10^3/uL (0.0-0.2); EOSINOPHILS % (AUTO) 5.1 % (0.9-2.9); HEMATOCRIT 26.6 % (42.0-54.0); HEMOGLOBIN 8.9 g/dL (13.5-18.0); LYMPHOCYTES # (AUTO) 2.4 X10^3/uL (1.3-2.9); LYMPHOCYTES % (AUTO) 34.5 % (21.0-51.0); MEAN CORPUSCULAR HEMOGLOBIN 26.1 pg (27.0-34.0); MEAN CORPUSCULAR HGB CONC 33.3 g/dL (33.0-35.0); MEAN CORPUSCULAR VOLUME 78.2 fL (80.0-100.0); MEAN PLATELET VOLUME 7.4 fL (7.4-11.0); MONOCYTES # (AUTO) 0.7 x10^3/uL (0.3-0.8); MONOCYTES % (AUTO) 10.4 % (0.0-13.0); NEUTROPHILS # (AUTO) 3.4 x10^3/uL (2.2-4.8); NEUTROPHILS % (AUTO) 49.3 % (42.0-75.0); PLATELET COUNT 442 X10^3/uL (150.0-450.0); RED CELL DISTRIBUTION WIDTH 14.6 % (11.6-16.5); WHITE BLOOD COUNT 6.9 X10^3/uL (3.6-10.0)
[2019-09-01 06:21] LABS: ALANINE AMINOTRANSFERASE 41 Units/L (12-78); ALKALINE PHOSPHATASE 70 Units/L (46-116); ASPARTATE AMINO TRANSFERASE 28 Units/L (15-37); BLOOD UREA NITROGEN 12 mg/dL (7-18); CALCIUM 8.8 mg/dL (8.5-10.1); CARBON DIOXIDE 27.5 mmol/L (21-32); CHLORIDE 104 mmol/L (98-107); COR CA(FOR HYPOALB) 9.6 mg/dL (8.5-10.1); SODIUM 139 mmol/L (136-145); TOTAL PROTEIN 7.1 g/dL (6.4-8.2); eGFR NON BLACK RACES > 60 (>60)
[2019-09-01 07:19] LABS: BAND NEUTROPHILS % 5 % (0-10); PLATELET MORPHOLOGY COMMENT NORMAL (NORMAL)
[2019-09-01] MEDS ORDERED: NORVASC TAB 5 MG PO SCH (09:00)
[2019-09-01] MEDS ORDERED: XYLOCAINE 1 % (PLAIN) ONE (09:32)
--- NOTE | 2019-09-01 11:32 | RAD ---
HISTORY:PICC line placementStudy: Single view chestComparison:08/31/2019Findings:Single portable views limited by underpenetration. Left-sided PICC terminates in the region of the mid SVC. No infiltrate, effusion, or pneumothorax identified .Cardiac and mediastinal contours are within normal limits .The soft tissues are intact .IMPRESSION:1. Left-sided PICC terminates in the region of the mid SVC.2. No acute cardiopulmonary abnormality identified.Electronically signed by: DUKE NAIR (Sep 01, 2019 11:30:54)
[2019-09-01 12:19] VITALS: BP 142/92
--- NOTE | 2019-09-14 20:13 | DR.CARTERS ---
Short Stay Summary - Admission Date Date of Admission: 08/31/19 - Discharge Date Discharge Date: 09/01/19 - Admission Diagnoses (1) Cellulitis of left leg Status: Acute (2) Osteomyelitis of ankle, left, acute Status: Acute (3) Displacement of peripherally inserted central catheter (PICC) Status: Acute - Hospital Course Hospital Course: IS A 39 YEAR OLD PATIENT OF OURS WHO PRESENTED TO THE ER WITH REPORTS OF HIS PICC LINE COMING PARTIALLY OUT OF PLACE. ON ARRIVAL, PATIENTS PICC LINE REMAINED IN ARM, HOWEVER, PATIENT REPORTED THAT IT HAS CAME OUT OVER 10 INCHES. PATIENT IS CURRENTLY ON A 6 WEEK COURSE OF VANCOMYCIN AND CEFEPIME FOR CELLULITIS AND OSTEOMYELITIS OF THE LLE. HIS PMH INCLUDES: HTN AND MULTIPLE SURGERIES TO THE LLE FOLLOWING A FALL THAT OCCURRED OVER A YEAR AGO. EXAMINATION OF THE LEFT LOWER EXTREMITY REVEALED REDNESS. ON ARRIVAL TO THE ER, VITALS WERE 98.6-97-18-97%-132/81. LABS WERE OBTAINED. ABNORMAL LAB VALUES INCLUDE THE FOLLOWING: RBC 3.90, HGB 10.1, HCT 30.3, PLT COUNT 576, GLUCOSE 102, TOTAL BILI 0.10, GLOBULIN 4.6. A CHEST XRAY WAS OBTAINED AND REVEALED: 1. No evidence of acute cardiopulmonary abnormality. 2. No evidence of PICC line catheter on the current images. HIS PICC LINE WAS REMOVED IN THE ER. ANESTHESIA WAS CONSULTED FOR RESINSERTION OF PICC LINE. WE WERE ADVISED THAT THEY WOULD BE AVAILABLE THE FOLLOWING MORNING FOR REINSERTION. PATIENT WAS ADMITTED FOR FURTHER EVALUATION AND TREATMENT OF CELLULITIS AND OSTEOMYELITIS OF THE LEFT LEG. WE PLANNED TO ADMINISTER HIS IV ANTIBIOTICS AND AWAIT REINSERTION OF PICC LINE. ON THE MORNING FOLLOWING ADMISSION, PATIENT IS ALERT AND ORIENTED, LYING IN BED ON MORNING ROUNDS. HE DENIES COMPLAINTS AND REPORTS FEELING WELL. ON EXAMINATION, HEART IS REGULAR IN RATE AND RHYTHM. BILATERAL LUNGS ARE NOTED WITH DIMINISHED LUNG SOUNDS THROUGHOUT. ABDOMEN IS ROUND, SOFT, AND NON-TENDER WITH NORMAL BOWEL SOUNDS NOTED IN ALL QUADRANTS. LLE CONTINUES WITH ERYTHEMA. HIS VITALS THIS MORNING ARE: 97.6-76-18-100%-141/91. LABS WERE OBTAINED. ABNORMAL LAB VALUES INCLUDE THE FOLLOWING: RBC 3.40, HGB 8.9, HCT 26.6, POTASSIUM 3.4, TOTAL BILI 0.10, ALBUMIN 3.0. ANESTHESIA CONSULTED WITH PATIENT AND REINSERTED PICC LINE. A CHEST XRAY WAS OBTAINED AND CONFIRMED PLACEMENT. WE PLANNED FOR DISCHARGE. INSTRUCTIONS FOR MEDICATIONS AND FOLLOW-UP WERE DISCUSSED WITH PATIENT AND FAMILY. THEY VERBALIZED UNDERSTANDING OF ORDERS. PATIENT WAS INSTRUCTED TO CONTINUE HIS COURSE OF VANCOMYCIN AND CEFEPIME AT HOME. HE WAS INSTRUCTED TO FOLLOW UP IN THE OFFICE IN 1 WEEK. PATIENT WAS DISCHARGED HOME IN STABLE, IMPROVED CONDITION. - Discharge Medications Discharge Medications: Home Medication List acetaminophen [Tylenol 8 Hour] 650 mg PO Q8H PRN 09/01/19 [History] amlodipine 5 mg PO DAILY 09/01/19 [History] ascorbic acid (vitamin C) [Vitamin C] 500 mg PO DAILY 09/01/19 [History] bupropion HCl 150 mg PO BID 09/01/19 [History] carisoprodol [Soma] 350 mg PO TID PRN 09/01/19 [History] cefepime in dextrose 5 % 2 g IV Q8H 09/01/19 [History] duloxetine 60 mg PO HS 09/01/19 [History] melatonin 10 mg PO HS PRN 09/01/19 [History] metronidazole 500 mg PO Q8H 09/01/19 [History] oxycodone-acetaminophen 1 tab PO Q4H PRN 09/01/19 [History] potassium chloride 20 meq PO DAILY 09/01/19 [History] prazosin 5 mg PO HS 09/01/19 [History] vancomycin in 0.9 % sodium chl 1.25 g IV Q8H 09/01/19 [History] Prescriptions: Risks, benefits, and alternatives of opioids discussed: Yes - Discharge Plan Disposition: HOME HEALTH SERVICE Condition: Stable - Follow up/Referrals Follow up/Referrals: Jagjit Ruiz [Primary Care Provider] - 09/08/19 2:30 pm (TELEMED TELEPHONE APPOINTMENT, MD WILL CALL YOU ) - Instructions Instructions: PICC Removal, Adult, PICC Insertion, Care After, PICC Home Care Guide Additional Instructions: DIET TOLERATED. ACTIVITY TOLERATED Forms: Excuse From Work or School, Precautions for COVID19, Patient Portal, Social Distancing
== END 2019-09-01 13:00 | disposition home health service (06) ==
LOC: ER 17:59 → MED/SURG 17:59
PROVIDERS: ADMIT Internal Medicine; ATTEND Internal Medicine
DX: M86.172 Other acute osteomyelitis, left ankle and foot; Z46.89 Encounter for fitting and adjustment of other specified devices; E11.65 Type 2 diabetes mellitus with hyperglycemia; L03.116 Cellulitis of left lower limb
CPT/HCPCS: 36415; 71010; 71045; 80053; 80202; 82565; 85025; 96365; 96372; 97161; 99284; A4222; G0378; J0692; J3370; J7040; J7050; J7060

== ENCOUNTER 2019-12-24 05:15 | Inpatient (IN) ==
[2019-12-24] MEDS ORDERED: ZOFRAN TAB 4 MG PO ONE (05:54)
--- NOTE | 2019-12-24 05:54 | DR.URIAD ---
HPI <TAMI MESA - [place] Filed: 12/24/19 07:34> Time Seen Time Seen by Provider: 12/24/19 08:20 PCP Primary Care Physician: JAIMEE Mitchell Chief Complaint Doctors Comments: Also nausea Chief Complaint:: PT AMBULATORY IN ED WITH C/O WAKING UP WITH HURTING ALL OVER, CHILLS, COUGHING STATING HE CAN'T BREATHE. COVID-19 Coronavirus risk:travel/contact w/high risk person: No Has patient experienced Coronavirus symptoms: Yes Coronavirus symptoms experienced: Coughing and Shortness of Breath Reviewed Nurses Notes Reviewed: Yes Source History Provided: Patient Mode of Arrival Mode of Arrival: Ambulatory Timing Onset of Chief Complaint: 12/24/19 Context Recent Treated Infections: None History of Respiratory: None Quality Quality of Cough: Nonproductive Rhinorrhea: Clear Shortness of Breath: Mild Associated Signs and Symptoms Other Signs and Symptoms: Chills, Cough, Nasal Symptoms, Nausea and Shortness of Breath PMH <TAMI Lam Filed: 12/24/19 07:34> PMH Past Medical History: Yes Past Medical History: Hypertension Past Medical History Comment: PTSD Past Surgical History: Yes Surgical History: Ortho Surgery Past Surgical History Comment: BILATERAL ANKLE Family History History of Family Medical Conditions: Yes Family Medical History: Hypertension Social History Does patient currently use any type of tobacco product: No Have you used tobacco products in the last 12 months: No Type of Tobacco Use: None Does any household member use tobacco: No Alcohol Use: None Do you use any recreational Drugs:: No Lives With: Alone Lives Where: Home Travel Risk Coronavirus risk:travel/contact w/high risk person: No Has patient experienced Coronavirus symptoms: Yes Coronavirus symptoms experienced: Coughing and Shortness of Breath Infectious screening In the last 2 months have you had wt loss of >10#?: NO Have you had fever, night sweats or hemotysis?: No Have you traveled outside the country in the last 6 months?: No Isolation: Droplet ROS <TAMI Lam Filed: 12/24/19 07:34> Review of Systems Constitutional: Malaise Eyes: No Symptoms Reported ENTM: Nose Congestion Respiratoy: Non-Productive Cough and Short of Breath Cardiovascular: No Symptoms Reported Gastrointestinal/Abdominal: Nausea Genitourinary: No Symptoms Reported Neurological: No Symptoms Reported Musculoskeletal: Joint Pain Integumentary: No Symptoms Reported Hematologic/Lymphatic: No Symptoms Reported Endocrine: No Symptoms Reported Psychiatric: Anxiety All Other Systems: Reviewed and Negative PE <TAMI MESA - Last Filed: 12/24/19 07:34> Vital Signs Vitals: Temperature 98.3 F Pulse Rate [Right Radial] 83 Pulse Rate 89 Respiratory Rate 20 Blood Pressure [Left Arm] 136/66 Blood Pressure 122/50 O2 Sat by Pulse Oximetry 99 General Limitations: No Limitations General Appearance: Alert and In No Apparent Distress Head Head Exam: Normal Inspection; negative Atraumatic Eyes Eye exam: Normal Appearance and EOMI ENT ENT Exam: Normal Exam and Normal Oropharynx External Ear Exam: Normal External Inspection Nose Exam: Normal Nose Exam Mouth Exam: Normal Inspection Throat Exam: Normal Inspection Neck Neck Exam: Normal Inspection and Full ROM; negative Trachea Midline Chest Chest Inspection: Normal Inspection Respiratory Respiratory Exam: Normal Lung Sounds Bilat Respiratory Exam: Bilateral: Clear to Auscultation Cardiovascular Cardiovascular Exam: Regular Rate Abdominal Exam Abdominal Exam: Normal Inspection, Normal Bowel Sounds and Soft; negative Distention and Guarding Extremeties Extremities Exam: Normal Inspection, Full ROM and Normal Capillary Refill; negative Tenderness, Edema and Joint Swelling Back Back Exam: Normal Inspection and Full ROM Neurologic Neurological Exam: Alert, Oriented X3, CN II-XII Intact and Normal Gait Psychiatric Psychiatric Exam: Depressed and Anxious Skin Skin Exam: Normal Color <KALPANA ABARCA - Last Filed: 12/24/19 12:28> Vital Signs Vitals: Temperature 98.3 F Pulse Rate [Right Radial] 83 Pulse Rate 89 Respiratory Rate 20 Blood Pressure [Left Arm] 136/66 Blood Pressure 122/50 O2 Sat by Pulse Oximetry 99 ROR <TAMI MESA - Last Filed: 12/24/19 07:34> Labs Reviewed Result Diagrams: 12/24/19 06:05 12/24/19 06:05 Laboratory: WBC 9.3 X10^3/uL (3.6-10.0) 12/24/19 06:05 RBC 5.23 X10^6/uL (4.7-6.0) 12/24/19 06:05 Hgb 13.7 g/dL (13.5-18.0) 12/24/19 06:05 Hct 41.8 % (42.0-54.0) L 12/24/19 06:05 MCV 79.9 fL (80.0-100.0) L 12/24/19 06:05 MCH 26.2 pg (27.0-34.0) L 12/24/19 06:05 MCHC 32.8 g/dL (33.0-35.0) L 12/24/19 06:05 RDW 16.0 % (11.6-16.5) 12/24/19 06:05 Plt Count 324 X10^3/uL (150.0-450.0) 12/24/19 06:05 MPV 7.2 fL (7.4-11.0) L 12/24/19 06:05 Neut % (Auto) 82.1 % (42.0-75.0) H 12/24/19 06:05 Lymph % (Auto) 13.0 % (21.0-51.0) L 12/24/19 06:05 [place] % (Auto) 2.2 % (0.0-13.0) 12/24/19 06:05 Eos % (Auto) 2.1 % (0.9-2.9) 12/24/19 06:05 Baso % (Auto) 0.6 % (0.2-1.0) 12/24/19 06:05 Neut # (Auto) 7.6 x10^3/uL (2.2-4.8) H 12/24/19 06:05 Lymph # (Auto) 1.2 X10^3/uL (1.3-2.9) L 12/24/19 06:05 [place] # (Auto) 0.2 x10^3/uL (0.3-0.8) L 12/24/19 06:05 Eos # (Auto) 0.2 x10^3/uL (0.0-0.2) 12/24/19 06:05 Baso # (Auto) 0.1 X10^3/uL (0.0-0.1) 12/24/19 06:05 Absolute Nucleated RBC 0.0 /100WBC 12/24/19 06:05 Sodium 142 mmol/L (136-145) 12/24/19 06:05 Corrected Sodium TNP 12/24/19 06:05 Potassium 3.5 mmol/L (3.5-5.1) 12/24/19 06:05 Chloride 103 mmol/L (98-107) 12/24/19 06:05 Carbon Dioxide 29.4 mmol/L (21-32) 12/24/19 06:05 BUN 14 mg/dL (7-18) 12/24/19 06:05 Creatinine 1.28 mg/dL (0.70-1.30) 12/24/19 06:05 Est GFR (MDRD) Af Amer > 60 (>60) 12/24/19 06:05 Est GFR (MDRD) Non-Af > 60 (>60) 12/24/19 06:05 Glucose 94 mg/dL (65-99) 12/24/19 06:05 Calcium 9.1 mg/dL (8.5-10.1) 12/24/19 06:05 Corrected Calcium TNP 12/24/19 06:05 Ferritin 30 ng/mL (26-388) 12/24/19 06:05 Total Bilirubin 0.20 mg/dL (0.2-1.0) 12/24/19 06:05 AST 15 Units/L (15-37) 12/24/19 06:05 ALT 30 Units/L (12-78) 12/24/19 06:05 Alkaline Phosphatase 128 Units/L (46-116) H 12/24/19 06:05 C-Reactive Protein 1.40 mg/L (0-3.0) 12/24/19 06:05 Total Protein 7.9 g/dL (6.4-8.2) 12/24/19 06:05 Albumin 3.4 g/dL (3.4-5.0) 12/24/19 06:05 Globulin 4.5 g/dL (2.5-4.5) 12/24/19 06:05 Albumin/Globulin Ratio 0.8 Ratio (1.1-2.1) L 12/24/19 06:05 Urine Opiates Screen Negative (NEG=<300) 12/24/19 07:30 Urine Methadone Screen Negative (NEG=<300) 12/24/19 07:30 Ur Barbiturates Screen Negative (NEG=<200) 12/24/19 07:30 Ur Phencyclidine Scrn Negative (NEG=<25) 12/24/19 07:30 Ur Amphetamines Screen Negative (NEG=<1000) 12/24/19 07:30 U Benzodiazepines Scrn Positive (NEG=<200) 12/24/19 07:30 Urine Cocaine Screen Negative (NEG=<300) 12/24/19 07:30 U Marijuana (THC) Screen Negative (NEG=<50) 12/24/19 07:30 Influenza Type A Ag Negative-presumptive (NEGATIVE) 12/24/19 06:05 Influenza Type B Ag Negative-presumptive (NEGATIVE) 12/24/19 06:05 SARS-CoV-2 (PCR) Negative (NEGATIVE) 12/24/19 07:50 XRAY XRAY Interpreted by: Radiologist X-ray Results: chest : patchy infiltrates <ADEWUNMI SOBOWALE - Last Filed: 12/24/19 12:28> Labs Reviewed Laboratory: WBC 9.3 X10^3/uL (3.6-10.0) 12/24/19 06:05 RBC 5.23 X10^6/uL (4.7-6.0) 12/24/19 06:05 Hgb 13.7 g/dL (13.5-18.0) 12/24/19 06:05 Hct 41.8 % (42.0-54.0) L 12/24/19 06:05 MCV 79.9 fL (80.0-100.0) L 12/24/19 06:05 MCH 26.2 pg (27.0-34.0) L 12/24/19 06:05 MCHC 32.8 g/dL (33.0-35.0) L 12/24/19 06:05 RDW 16.0 % (11.6-16.5) 12/24/19 06:05 Plt Count 324 X10^3/uL (150.0-450.0) 12/24/19 06:05 MPV 7.2 fL (7.4-11.0) L 12/24/19 06:05 Neut % (Auto) 82.1 % (42.0-75.0) H 12/24/19 06:05 Lymph % (Auto) 13.0 % (21.0-51.0) L 12/24/19 06:05 [place] % (Auto) 2.2 % (0.0-13.0) 12/24/19 06:05 Eos % (Auto) 2.1 % (0.9-2.9) 12/24/19 06:05 Baso % (Auto) 0.6 % (0.2-1.0) 12/24/19 06:05 Neut # (Auto) 7.6 x10^3/uL (2.2-4.8) H 12/24/19 06:05 Lymph # (Auto) 1.2 X10^3/uL (1.3-2.9) L 12/24/19 06:05 [place] # (Auto) 0.2 x10^3/uL (0.3-0.8) L 12/24/19 06:05 Eos # (Auto) 0.2 x10^3/uL (0.0-0.2) 12/24/19 06:05 Baso # (Auto) 0.1 X10^3/uL (0.0-0.1) 12/24/19 06:05 Absolute Nucleated RBC 0.0 /100WBC 12/24/19 06:05 Sodium 142 mmol/L (136-145) 12/24/19 06:05 Corrected Sodium TNP 12/24/19 06:05 Potassium 3.5 mmol/L (3.5-5.1) 12/24/19 06:05 Chloride 103 mmol/L (98-107) 12/24/19 06:05 Carbon Dioxide 29.4 mmol/L (21-32) 12/24/19 06:05 BUN 14 mg/dL (7-18) 12/24/19 06:05 Creatinine 1.28 mg/dL (0.70-1.30) 12/24/19 06:05 Est GFR (MDRD) Af Amer > 60 (>60) 12/24/19 06:05 Est GFR (MDRD) Non-Af > 60 (>60) 12/24/19 06:05 Glucose 94 mg/dL (65-99) 12/24/19 06:05 Calcium 9.1 mg/dL (8.5-10.1) 12/24/19 06:05 Corrected Calcium TNP 12/24/19 06:05 Ferritin 30 ng/mL (26-388) 12/24/19 06:05 Total Bilirubin 0.20 mg/dL (0.2-1.0) 12/24/19 06:05 AST 15 Units/L (15-37) 12/24/19 06:05 ALT 30 Units/L (12-78) 12/24/19 06:05 Alkaline Phosphatase 128 Units/L (46-116) H 12/24/19 06:05 C-Reactive Protein 1.40 mg/L (0-3.0) 12/24/19 06:05 Total Protein 7.9 g/dL (6.4-8.2) 12/24/19 06:05 Albumin 3.4 g/dL (3.4-5.0) 12/24/19 06:05 Globulin 4.5 g/dL (2.5-4.5) 12/24/19 06:05 Albumin/Globulin Ratio 0.8 Ratio (1.1-2.1) L 12/24/19 06:05 Urine Opiates Screen Negative (NEG=<300) 12/24/19 07:30 Urine Methadone Screen Negative (NEG=<300) 12/24/19 07:30 Ur Barbiturates Screen Negative (NEG=<200) 12/24/19 07:30 Ur Phencyclidine Scrn Negative (NEG=<25) 12/24/19 07:30 Ur Amphetamines Screen Negative (NEG=<1000) 12/24/19 07:30 U Benzodiazepines Scrn Positive (NEG=<200) 12/24/19 07:30 Urine Cocaine Screen Negative (NEG=<300) 12/24/19 07:30 U Marijuana (THC) Screen Negative (NEG=<50) 12/24/19 07:30 Influenza Type A Ag Negative-presumptive (NEGATIVE) 12/24/19 06:05 Influenza Type B Ag Negative-presumptive (NEGATIVE) 12/24/19 06:05 SARS-CoV-2 (PCR) Negative (NEGATIVE) 12/24/19 07:50 Opioid <TAMI MESA - Last Filed: 12/24/19 07:34> Opioid Risk Tool Age (Tami box if 16-45): Yes History of Preadolescent Sexual Abuse: No Total: 1 Total Score Risk Category: Low Risk Copyright: Paolo MEYERS predicting aberrant behaviors <ADEWUNMI SOBOWALE - Last Filed: 12/24/19 12:28> Opioid Risk Tool Total: 0 Total Score Risk Category: Low Risk <TAMI MESA - Last Filed: 12/24/19 07:34> Diagnosis Discharge Problem: Pneumonia Qualifiers: Pneumonia type: due to unspecified organism Laterality: right Lung location: lower lobe of lung Qualified Code(s): J18.9 - Pneumonia, unspecified organism
[2019-12-24] MEDS ORDERED: XOPENEX 1.25 MG/3 ML NEBULE NEB ONE ×2 (05:56→06:03)
[2019-12-24] MEDS ORDERED: ZOFRAN TAB 4 MG ONE (06:00)
[2019-12-24 06:28] LABS: ALANINE AMINOTRANSFERASE 30 Units/L (12-78); ALBUMIN 3.4 g/dL (3.4-5.0); ALKALINE PHOSPHATASE 128 Units/L (46-116); ASPARTATE AMINO TRANSFERASE 15 Units/L (15-37); BLOOD UREA NITROGEN 14 mg/dL (7-18); CALCIUM 9.1 mg/dL (8.5-10.1); CARBON DIOXIDE 29.4 mmol/L (21-32); CHLORIDE 103 mmol/L (98-107); CREATININE 1.28 mg/dL (0.70-1.30); SODIUM 142 mmol/L (136-145); TOTAL PROTEIN 7.9 g/dL (6.4-8.2); eGFR NON BLACK RACES > 60 (>60)
[2019-12-24 06:34] LABS: BASOPHILS # (AUTO) 0.1 X10^3/uL (0.0-0.1); BASOPHILS % (AUTO) 0.6 % (0.2-1.0); EOSINOPHILS # (AUTO) 0.2 x10^3/uL (0.0-0.2); EOSINOPHILS % (AUTO) 2.1 % (0.9-2.9); HEMATOCRIT 41.8 % (42.0-54.0); HEMOGLOBIN 13.7 g/dL (13.5-18.0); LYMPHOCYTES # (AUTO) 1.2 X10^3/uL (1.3-2.9); MEAN CORPUSCULAR HEMOGLOBIN 26.2 pg (27.0-34.0); MEAN CORPUSCULAR HGB CONC 32.8 g/dL (33.0-35.0); MEAN CORPUSCULAR VOLUME 79.9 fL (80.0-100.0); MEAN PLATELET VOLUME 7.2 fL (7.4-11.0); MONOCYTES # (AUTO) 0.2 x10^3/uL (0.3-0.8); MONOCYTES % (AUTO) 2.2 % (0.0-13.0); NEUTROPHILS # (AUTO) 7.6 x10^3/uL (2.2-4.8); NEUTROPHILS % (AUTO) 82.1 % (42.0-75.0); PLATELET COUNT 324 X10^3/uL (150.0-450.0); RED BLOOD COUNT 5.23 X10^6/uL (4.7-6.0); WHITE BLOOD COUNT 9.3 X10^3/uL (3.6-10.0)
--- NOTE | 2019-12-24 06:45 | RAD ---
HISTORYCough, respiratory difficulty, chillsSTUDYChest AP [id number] heart is within normal limits in size. The brando are normal. The lungs are well inflated. Right lower lobe infiltrate is present suggestive of right lower lobe pneumonia. There is some patchy infiltrate in the right upper lobe suggestive of multifocal pneumonia. Follow-up of these infiltrates until complete resolution is recommended. The remainder of the lung villarreal are clear. No pleural effusions are identified. Bony thorax is unremarkable.IMPRESSIONMultifocal infiltrates involving the right lower lobe and right upper lobe most consistent with pneumonia. Follow-up until complete resolution is recommended.Electronically signed by: MYNOR JOHNSON (Dec 24, 2019 06:44:35)
[2019-12-24] MEDS ORDERED: ZITHROMAX TAB 250 MG PO ONE ×2 (07:36→07:41)
[2019-12-24] MEDS ORDERED: MOTRIN TAB 800 MG PO ONE (07:45)
[2019-12-24] MEDS: MOTRIN TAB 800 MG PO PRN ×2 (07:50→19:25)
--- NOTE | 2019-12-24 08:25 | DR.URIAD ---
HPI Time Seen Time Seen by Provider: 12/24/19 08:20 PCP Primary Care Physician: JAIMEE HPI Comment HPI Comment: A 39 y/o male who presented with 3 days of body aches, muscle soreness, non-productive cough, chills and SOB. He denies fever and he's not had contact with anyone with COVID symptoms that he knows of he says. Complaint Chief Complaint:: PT AMBULATORY IN ED WITH C/O WAKING UP WITH HURTING ALL OVER, CHILLS, COUGHING STATING HE CAN'T BREATHE. COVID-19 Coronavirus risk:travel/contact w/high risk person: No Has patient experienced Coronavirus symptoms: Yes Coronavirus symptoms experienced: Coughing and Shortness of Breath Reviewed Nurses Notes Reviewed: Yes Source History Provided: Patient Mode of Arrival Mode of Arrival: Ambulatory Timing Onset of Chief Complaint: 12/24/19 Context Recent Treated Infections: None History of Respiratory: None Quality Quality of Cough: Nonproductive Rhinorrhea: None Shortness of Breath: Mild Associated Signs and Symptoms Other Signs and Symptoms: Chills, Cough, Nasal Symptoms, Nausea and Shortness of Breath PMH PMH Past Medical History: Yes Past Medical History: Hypertension Past Medical History Comment: PTSD Past Surgical History: Yes Surgical History: Ortho Surgery Past Surgical History Comment: BILATERAL ANKLE Family History History of Family Medical Conditions: Yes Family Medical History: Hypertension Social History Does patient currently use any type of tobacco product: No Have you used tobacco products in the last 12 months: No Type of Tobacco Use: None Does any household member use tobacco: No Alcohol Use: None Do you use any recreational Drugs:: No Lives With: Alone Lives Where: Home Travel Risk Coronavirus risk:travel/contact w/high risk person: No Has patient experienced Coronavirus symptoms: Yes Coronavirus symptoms experienced: Coughing and Shortness of Breath Infectious screening In the last 2 months have you had wt loss of >10#?: NO Have you had fever, night sweats or hemotysis?: No Have you traveled outside the country in the last 6 months?: No Isolation: Droplet ROS Review of Systems Constitutional: Chills and Other (Generalized body aches) Eyes: No Symptoms Reported ENTM: No Symptoms Reported Respiratoy: Non-Productive Cough and Short of Breath Cardiovascular: No Symptoms Reported Gastrointestinal/Abdominal: No Symptoms Reported Genitourinary: No Symptoms Reported Neurological: No Symptoms Reported Musculoskeletal: No Symptoms Reported Integumentary: No Symptoms Reported Hematologic/Lymphatic: No Symptoms Reported Endocrine: No Symptoms Reported Psychiatric: No Symptoms Reported PE Vital Signs Vitals: Temperature 98.3 F Pulse Rate [Right Radial] 83 Pulse Rate 89 Respiratory Rate 20 Blood Pressure [Left Arm] 136/66 Blood Pressure 122/50 O2 Sat by Pulse Oximetry 99 General Limitations: No Limitations General Appearance: Alert and In No Apparent Distress Head Head Exam: Normal Inspection, Atraumatic and Normocephalic Eyes Eye exam: Normal Appearance and EOMI ENT ENT Exam: Normal Exam, Normal Oropharynx, Normal External Ear Exam and Mucous Membranes Moist Neck Neck Exam: Normal Inspection, Full ROM and Trachea Midline Chest Chest Inspection: Normal Inspection Respiratory Respiratory Exam: Normal Lung Sounds Bilat Cardiovascular Cardiovascular Exam: Regular Rate, Normal Rhythm, +S1 and +S2 Abdominal Exam Abdominal Exam: Normal Inspection, Normal Bowel Sounds and Soft Extremeties Extremities Exam: Normal Inspection and Full ROM Back Back Exam: Normal Inspection and Full ROM Neurologic Neurological Exam: Alert and Oriented X3 Psychiatric Psychiatric Exam: Normal Affect and Normal Mood Skin Skin Exam: Dry and Normal Color COURSE Reevaluation 1st: Unchanged Education/Counseling Education/Counseling: Patient, Education and Counseling Educated On: Treatment, Diagnosis, Prognosis and Needs for Follow Up ROR Labs Reviewed Laboratory Results Reviewed?: Yes Result Diagrams: 12/24/19 06:05 12/24/19 06:05 Laboratory: WBC 9.3 X10^3/uL (3.6-10.0) 12/24/19 06:05 RBC 5.23 X10^6/uL (4.7-6.0) 12/24/19 06:05 Hgb 13.7 g/dL (13.5-18.0) 12/24/19 06:05 Hct 41.8 % (42.0-54.0) L 12/24/19 06:05 MCV 79.9 fL (80.0-100.0) L 12/24/19 06:05 MCH 26.2 pg (27.0-34.0) L 12/24/19 06:05 MCHC 32.8 g/dL (33.0-35.0) L 12/24/19 06:05 RDW 16.0 % (11.6-16.5) 12/24/19 06:05 Plt Count 324 X10^3/uL (150.0-450.0) 12/24/19 06:05 MPV 7.2 fL (7.4-11.0) L 12/24/19 06:05 Neut % (Auto) 82.1 % (42.0-75.0) H 12/24/19 06:05 Lymph % (Auto) 13.0 % (21.0-51.0) L 12/24/19 06:05 [place] % (Auto) 2.2 % (0.0-13.0) 12/24/19 06:05 Eos % (Auto) 2.1 % (0.9-2.9) 12/24/19 06:05 Baso % (Auto) 0.6 % (0.2-1.0) 12/24/19 06:05 Neut # (Auto) 7.6 x10^3/uL (2.2-4.8) H 12/24/19 06:05 Lymph # (Auto) 1.2 X10^3/uL (1.3-2.9) L 12/24/19 06:05 [place] # (Auto) 0.2 x10^3/uL (0.3-0.8) L 12/24/19 06:05 Eos # (Auto) 0.2 x10^3/uL (0.0-0.2) 12/24/19 06:05 Baso # (Auto) 0.1 X10^3/uL (0.0-0.1) 12/24/19 06:05 Absolute Nucleated RBC 0.0 /100WBC 12/24/19 06:05 Sodium 142 mmol/L (136-145) 12/24/19 06:05 Corrected Sodium TNP 12/24/19 06:05 Potassium 3.5 mmol/L (3.5-5.1) 12/24/19 06:05 Chloride 103 mmol/L (98-107) 12/24/19 06:05 Carbon Dioxide 29.4 mmol/L (21-32) 12/24/19 06:05 BUN 14 mg/dL (7-18) 12/24/19 06:05 Creatinine 1.28 mg/dL (0.70-1.30) 12/24/19 06:05 Est GFR (MDRD) Af Amer > 60 (>60) 12/24/19 06:05 Est GFR (MDRD) Non-Af > 60 (>60) 12/24/19 06:05 Glucose 94 mg/dL (65-99) 12/24/19 06:05 Calcium 9.1 mg/dL (8.5-10.1) 12/24/19 06:05 Corrected Calcium TNP 12/24/19 06:05 Ferritin 30 ng/mL (26-388) 12/24/19 06:05 Total Bilirubin 0.20 mg/dL (0.2-1.0) 12/24/19 06:05 AST 15 Units/L (15-37) 12/24/19 06:05 ALT 30 Units/L (12-78) 12/24/19 06:05 Alkaline Phosphatase 128 Units/L (46-116) H 12/24/19 06:05 C-Reactive Protein 1.40 mg/L (0-3.0) 12/24/19 06:05 Total Protein 7.9 g/dL (6.4-8.2) 12/24/19 06:05 Albumin 3.4 g/dL (3.4-5.0) 12/24/19 06:05 Globulin 4.5 g/dL (2.5-4.5) 12/24/19 06:05 Albumin/Globulin Ratio 0.8 Ratio (1.1-2.1) L 12/24/19 06:05 Urine Opiates Screen Negative (NEG=<300) 12/24/19 07:30 Urine Methadone Screen Negative (NEG=<300) 12/24/19 07:30 Ur Barbiturates Screen Negative (NEG=<200) 12/24/19 07:30 Ur Phencyclidine Scrn Negative (NEG=<25) 12/24/19 07:30 Ur Amphetamines Screen Negative (NEG=<1000) 12/24/19 07:30 U Benzodiazepines Scrn Positive (NEG=<200) 12/24/19 07:30 Urine Cocaine Screen Negative (NEG=<300) 12/24/19 07:30 U Marijuana (THC) Screen Negative (NEG=<50) 12/24/19 07:30 Influenza Type A Ag Negative-presumptive (NEGATIVE) 12/24/19 06:05 Influenza Type B Ag Negative-presumptive (NEGATIVE) 12/24/19 06:05 SARS-CoV-2 (PCR) Negative (NEGATIVE) 12/24/19 07:50 Opioid Opioid Risk Tool Age (Christiano box if 16-45): Yes History of Preadolescent Sexual Abuse: No Total: 1 Total Score Risk Category: Low Risk Copyright: Paolo MEYERS predicting aberrant behaviors Diagnosis Discharge Problem: Pneumonia Qualifiers: Pneumonia type: due to unspecified organism Laterality: right Lung location: lower lobe of lung Qualified Code(s): J18.9 - Pneumonia, unspecified organism ADDITIONAL NOTES Additional Notes Additional Notes: HISTORY Cough, respiratory difficulty, chills STUDY Chest AP portable COMPARISON 09/01/2019 FINDINGS The heart is within normal limits in size. The brando are normal. The lungs are well inflated. Right lower lobe infiltrate is present suggestive of right lower lobe pneumonia. There is some patchy infiltrate in the right upper lobe sugg estive of multifocal pneumonia. Follow-up of these infiltrates until complete resolution is recommended. The remainder of the lung villarreal are clear. No pleural effusions are identified. Bony thorax is unremarkable. IMPRESSION Multifocal infiltrates involving the right lower lobe and right upper lobe most consistent with pneumonia. Follow-up until complete resolution is recommended. Electronically signed by: MYNOR JOHNSON (Dec 24, 2019 06:44:35)
[2019-12-24] MEDS ORDERED: LEVAQUIN PREMIX IV 750 MG 750 MG/150 ML BAG IV ONE (09:22)
[2019-12-24] MEDS ORDERED: TYLENOL 325 MG TAB PO PRN (10:02)
[2019-12-24] MEDS ORDERED: NS 1/2 1000 ML IV 1,000 ML IV ONE ×2 (11:02→23:11)
[2019-12-24] MEDS: NS 1/2 1000 ML IV 1,000 ML IV SCH ×2 (11:03→23:17)
[2019-12-24] MEDS ORDERED: DUONEB 0.5 MG/3 MG (3 mL) NEB ONE (12:28)
[2019-12-24] MEDS: DUONEB 0.5 MG/3 MG (3 mL) NEB SCH ×3 (12:34→21:40)
[2019-12-24] MEDS: ROBITUSSIN DM PO SCH ×3 (14:37→20:46)
[2019-12-24 15:00] VITALS: BMI 30.2
[2019-12-24] MEDS: FERROUS GLUCONATE PO SCH (15:45)
[2019-12-24] MEDS: CYMBALTA PO SCH (20:46)
[2019-12-24] MEDS: REMERON PO SCH (20:46)
[2019-12-24] MEDS: WELLBUTRIN SR 150 MG (BID) PO SCH (20:47)
[2019-12-24] MEDS ORDERED: K-RIDER 10 MEQ/NS 100 ML 10 MEQ/100 ML BAG IV PRN (23:06)
[2019-12-24] MEDS ORDERED: MICRO K EXTEN CAP 10 MEQ PO PRN (23:06)
[2019-12-24] MEDS ORDERED: KLOR-CON PO PRN (23:06)
[2019-12-24] MEDS ORDERED: POTASSIUM CHL 60 MEQ/NS 0.45% 500 ML IV PRN (23:06)
[2019-12-24] MEDS ORDERED: POTASSIUM CHLORIDE LIQ 20 MEQ UDC PO PRN (23:06)
[2019-12-24] MEDS ORDERED: POTASSIUM CHL 40 MEQ/NS 0.45% 500 ML IV PRN (23:06)
[2019-12-24] MEDS ORDERED: K-DUR TAB 20 MEQ PO ONE (23:10)
[2019-12-24] MEDS: K-DUR TAB 20 MEQ PO PRN (23:15)
[2019-12-25] MEDS: NS 1/2 1000 ML IV 1,000 ML IV SCH ×3 (05:26→17:32)
--- NOTE | 2019-12-25 06:10 | RAD ---
HISTORYPNEUMONIASTUDYCHEST, 1 VIEWCOMPARISONOne day priorTECHNIQUEAP view of the chestFINDINGSCardiac and mediastinal contours appear stable. Stable right mid and lower lung infiltrates. No pleural effusion or pneumothorax. Right apex is excluded.IMPRESSIONNo significant change.Electronically signed by: Rosalino Anna (Dec 25, 2019 06:09:17)
[2019-12-25 06:18] LABS: BASOPHILS # (AUTO) 0.1 X10^3/uL (0.0-0.1); BASOPHILS % (AUTO) 0.6 % (0.2-1.0); EOSINOPHILS # (AUTO) 0.8 x10^3/uL (0.0-0.2); EOSINOPHILS % (AUTO) 5.7 % (0.9-2.9); HEMATOCRIT 38.2 % (42.0-54.0); HEMOGLOBIN 12.6 g/dL (13.5-18.0); LYMPHOCYTES # (AUTO) 1.7 X10^3/uL (1.3-2.9); LYMPHOCYTES % (AUTO) 12.5 % (21.0-51.0); MEAN CORPUSCULAR HEMOGLOBIN 26.3 pg (27.0-34.0); MEAN CORPUSCULAR VOLUME 79.6 fL (80.0-100.0); MEAN PLATELET VOLUME 7.4 fL (7.4-11.0); MONOCYTES # (AUTO) 0.8 x10^3/uL (0.3-0.8); MONOCYTES % (AUTO) 5.6 % (0.0-13.0); NEUTROPHILS # (AUTO) 10.3 x10^3/uL (2.2-4.8); NEUTROPHILS % (AUTO) 75.6 % (42.0-75.0); PLATELET COUNT 288 X10^3/uL (150.0-450.0); RED CELL DISTRIBUTION WIDTH 16.6 % (11.6-16.5); WHITE BLOOD COUNT 13.6 X10^3/uL (3.6-10.0)
[2019-12-25 06:37] LABS: ALANINE AMINOTRANSFERASE 24 Units/L (12-78); ALKALINE PHOSPHATASE 111 Units/L (46-116); ASPARTATE AMINO TRANSFERASE 14 Units/L (15-37); BLOOD UREA NITROGEN 13 mg/dL (7-18); CALCIUM 8.8 mg/dL (8.5-10.1); CARBON DIOXIDE 29.3 mmol/L (21-32); CHLORIDE 106 mmol/L (98-107); COR CA(FOR HYPOALB) 9.6 mg/dL (8.5-10.1); CREATININE 1.14 mg/dL (0.70-1.30); SODIUM 143 mmol/L (136-145); TOTAL PROTEIN 7.5 g/dL (6.4-8.2); eGFR NON BLACK RACES > 60 (>60)
[2019-12-25] MEDS: VSL#3 PO SCH (08:45)
[2019-12-25] MEDS: WELLBUTRIN SR 150 MG (BID) PO SCH ×2 (08:45→20:58)
[2019-12-25] MEDS: VITAMIN C PO SCH (08:46)
[2019-12-25] MEDS: NORVASC TAB 5 MG PO SCH (08:46)
[2019-12-25] MEDS: ROBITUSSIN DM PO SCH ×4 (08:47→20:57)
[2019-12-25] MEDS: LEVAQUIN PREMIX IV 750 MG 750 MG/150 ML BAG IV SCH (08:47)
[2019-12-25] MEDS: K-DUR TAB 20 MEQ PO PRN (08:48)
--- NOTE | 2019-12-25 08:50 | DR.H&P ---
H&P - History & Physical for Day of: H&P Date: 12/24/19 - Chief Complaint Chief Complaint: COUGH, SOB, CHILLS, NASAL CONGESTION, NAUSEA, BODY ACHES - History of Present Illness History of Present Illness: IS A 39 YEAR OLD PATIENT OF OURS WHO PRESENTED TO THE ER WITH COMPLAINTS OF NON-PRODUCTIVE COUGH, CHILLS, SHORTNESS OF BREATH, NASAL CONGESTION, NAUSEA, AND GENERALIZED BODY ACHES X 3 DAYS. HE DENIES FEVER AND KNOWLEDGE OF CONTACT WITH ANYONE WHO HAS HAD COVID. HE DENIES TREATMENT PRIOR TO VISIT FOR THESE SYMPTOMS. HIS PMH INCLUDES HYPERTENSION, DEPRESSION, PTSD, AND MULTIPLE BILATERAL ANKLE SURGERIES. ON ARRIVAL , VITALS WERE 97.5-89-20-99%-122/50. LABS WERE OBTAINED. ABNORMAL LAB VALUES INCLUDE THE FOLLOWING: HCT 41.8, MCV 79.9, MCH 26.2, MCHC 32.8, MPV 7.2, NEUT % 82.1, LYMPH % 13.0, NEUT # 7.6, LYMPH # 1.2, ALK PHOS 128. INFLUENZA NEGATIVE, COVID-19 RAPID NEGATIVE. A SEND OUT COVID WAS COLLECTED WELL COVID ANTIBODIES. BLOOD CULTURES WERE SET UP. A CHEST XRAY WAS OBTAINED AND REVEALED: Multifocal infiltrates involving the right lower lobe and right upper lobe most consistent with pneumonia. Follow-up until complete resolution is recommended. HE WAS GIVEN A XOPENEX NEB TX X 1, AZITHROMYCIN 500MG PO X 1, MOTRIN 800MG PO X 1, AND ZOFRAN 4MG PO X 1. HE REPORTED ONLY SLIGHT IMPROVEMENT IN SYMTOMS. HE WAS ADMITTED TO THE HOSPITAL FOR FURTHER EVALUATION AND TREATMENT OF MULTI-LOBE PNEUMONIA. HE WAS STARTED ON THE PNEUMONIA PROTOCOL WITH SUPPLEMENTAL OXYGEN NEEDED, 1/2NS AT 100 ML/HR, LEVAQUIN 750MG IV DAILY, DUONEBS QID, ROBITUSSIN DM 10 ML PO QID, MOTRIN 800MG PO TID PRN, THE POTASSIUM AND MAGNESIUM PROTOCOLS, AND HIS HOME MEDICATIONS OF NORVASC, VITAMIN C, WELLBUTRIN, CYMBALTA, FERROUS GLUCONATE, AND REMERON WERE RESUMED. WE PLAN TO FOLLOW UP WITH AM LABS AND CHEST XRAY AND CONTINUE TO MONITOR. - Past Medical History Past Medical History: Depression, Hypertension Additional Medical History: PTSD - Past Surgical History Surgical History: Ortho Surgery Additional Surgical History: MULTIPLE BILATERAL ANKLE SURGERY - Family History Family Medical History: Hypertension - Social History Does patient currently use any type of tobacco product: No Have you used tobacco products in the last 12 months: No Type of Tobacco Use: None Does any household member use tobacco: No Alcohol Use: None Drug Use: None - Medications Home Medications: No Known Drug Allergies Allergy (Verified 08/31/19 18:00) CONTINUE taking the following medications ferrous sulfate 324 mg PO MOWEFR 12/24/19 [History] mirtazapine 30 mg PO QHS 12/24/19 [History] sildenafil 100 mg PO DAILY PRN 12/24/19 [History] - Review of Systems Constitutional: See HPI, Chills, Weakness Eyes: No Symptoms Reported ENT: Nose Congestion Respiratory: See HPI, Cough, Shortness of Breath, Wheezing Cardiovascular: No Symptoms Reported Gastrointestinal: Nausea Genitourinary: No Symptoms Reported Musculoskeletal: No Symptoms Reported Skin: No Symptoms Reported Neurological: Weakness - Physical Exam Vital Signs: Temperature 97.7 F Pulse Rate [Left Brachial] 90 Pulse Rate [Right Radial] 83 Pulse Rate 85 Respiratory Rate 20 Blood Pressure [Left Arm] 160/81 Blood Pressure 122/50 O2 Sat by Pulse Oximetry 96 Oriented: Normal Eyes: Normal Ear: Normal Nose: Normal Throat: Normal Respiratory: Wheezes Throughout Cardiovascular: Normal : Normal Auscultation: Bowel Sounds: Normal Palpation: Normal Tenderness: Normal Skin: Normal Musculoskeletal: Normal Psychiatric: Normal Mood Description: Calm Affect: Normal Speech Pattern: Clear - Assessment/Plan (1) Pneumonia Qualifiers: Pneumonia type: due to unspecified organism Laterality: right Lung loc ation: lower lobe of lung Qualified Code(s): J18.9 - Pneumonia, unspecified organism Status: Acute Plan: ADMIT, PNEUMONIA PROTOCOL WITH SUPPLEMENTAL OXYGEN NEEDED, 1/2NS AT 100 ML/HR, LEVAQUIN 750MG IV DAILY, DUONEBS QID, ROBITUSSIN DM 10 ML PO QID, MOTRIN 800MG PO TID PRN - Allergies Allergies/Adverse Reactions: Allergies Allergy/AdvReac Type Severity Reaction Status Date / Time No Known Drug Allergies Allergy Verified 08/31/19 18:00
[2019-12-25] MEDS ORDERED: LEVAQUIN PREMIX IV 750 MG 750 MG/150 ML BAG IV SCH (09:00)
[2019-12-25] MEDS: DUONEB 0.5 MG/3 MG (3 mL) NEB SCH ×4 (09:10→21:42)
[2019-12-25] MEDS: PRAZOSIN 5 MG PO SCH ×2 (09:30→16:58)
[2019-12-25] MEDS: MOTRIN TAB 800 MG PO PRN (14:41)
[2019-12-25] MEDS ORDERED: NS 1/2 1000 ML IV 1,000 ML IV ONE (17:07)
[2019-12-25] MEDS: REMERON PO SCH (20:57)
[2019-12-25] MEDS: CYMBALTA PO SCH (20:57)
[2019-12-25] MEDS: PATIENT'S HOME MEDICATION PO SCH (21:45)
[2019-12-26] MEDS: NS 1/2 1000 ML IV 1,000 ML IV SCH ×3 (06:17→23:16)
[2019-12-26 06:22] LABS: BASOPHILS # (AUTO) 0.1 X10^3/uL (0.0-0.1); BASOPHILS % (AUTO) 0.6 % (0.2-1.0); EOSINOPHILS # (AUTO) 0.8 x10^3/uL (0.0-0.2); EOSINOPHILS % (AUTO) 7.6 % (0.9-2.9); HEMATOCRIT 37.2 % (42.0-54.0); HEMOGLOBIN 12.3 g/dL (13.5-18.0); LYMPHOCYTES # (AUTO) 2.1 X10^3/uL (1.3-2.9); LYMPHOCYTES % (AUTO) 19.6 % (21.0-51.0); MEAN CORPUSCULAR HEMOGLOBIN 26.6 pg (27.0-34.0); MEAN CORPUSCULAR HGB CONC 33.2 g/dL (33.0-35.0); MEAN CORPUSCULAR VOLUME 80.1 fL (80.0-100.0); MEAN PLATELET VOLUME 7.7 fL (7.4-11.0); MONOCYTES # (AUTO) 0.6 x10^3/uL (0.3-0.8); MONOCYTES % (AUTO) 6.2 % (0.0-13.0); NEUTROPHILS # (AUTO) 6.9 x10^3/uL (2.2-4.8); PLATELET COUNT 283 X10^3/uL (150.0-450.0); RED BLOOD COUNT 4.64 X10^6/uL (4.7-6.0); RED CELL DISTRIBUTION WIDTH 16.5 % (11.6-16.5); WHITE BLOOD COUNT 10.5 X10^3/uL (3.6-10.0)
--- NOTE | 2019-12-26 06:35 | RAD ---
HISTORYSOBSTUDYCHEST, 1 [id number] view of the chestFINDINGSCardiac and mediastinal contours appear within normal limits. Mild improvement in right perihilar infiltrate. No pleural effusion or pneumothorax.IMPRESSIONMild improvement in right perihilar infiltrateElectronically signed by: Rosalino Anna (Dec 26, 2019 06:34:51)
[2019-12-26 06:38] LABS: ALANINE AMINOTRANSFERASE 24 Units/L (12-78); ALBUMIN 2.9 g/dL (3.4-5.0); ALKALINE PHOSPHATASE 101 Units/L (46-116); ASPARTATE AMINO TRANSFERASE 9 Units/L (15-37); BLOOD UREA NITROGEN 11 mg/dL (7-18); CALCIUM 9.3 mg/dL (8.5-10.1); CARBON DIOXIDE 29.1 mmol/L (21-32); CHLORIDE 107 mmol/L (98-107); COR CA(FOR HYPOALB) 10.2 mg/dL (8.5-10.1); COR NA(FOR HYPERGLY) 144 mmol/L (136-145); CREATININE 1.08 mg/dL (0.70-1.30); SODIUM 143 mmol/L (136-145); TOTAL PROTEIN 7.5 g/dL (6.4-8.2); eGFR NON BLACK RACES > 60 (>60)
[2019-12-26] MEDS: DUONEB 0.5 MG/3 MG (3 mL) NEB SCH ×4 (08:15→21:03)
--- NOTE | 2019-12-26 08:27 | PCM.PROG ---
Progress Note - Progress Note for Day of Date of Exam: 12/25/19 - Subjective Subjective: IS BEING TREATED FOR RIGHT MID AND LOWER LOBE PNEUMONIA. TODAY, HE IS ALERT AND ORIENTED, LYING IN BED ON MORNING ROUNDS. HE CONTINUES WITH COMPLAINTS OF A NON-PRODUCTIVE COUGH AND SHORTNESS OF BREATH. ON EXAMINATION, HEART IS REGULAR IN RATE AND RHYTHM. SCATTERED WHEEZING NOTED TO AUSCULTATION OF LUNG MCKENNA. ABDOMEN IS ROUND, SOFT, AND NON-TENDER WITH NORMAL BOWEL SOUNDS NOTED TO ALL QUADRANTS. HIS VITALS THIS MORNING ARE: 97.7-90-20-96%-160/81. LABS WERE OBTAINED. ABNORMAL LAB VALUES INCLUDE THE FOLLOWING: WBC 13.6, HGB 12.6, HCT 38.2, POTASSIUM 3.4, GLUCOSE 109, AST 14, ALBUMIN 3.0. BLOOD CULTURES ARE PENDING. A CHEST XRAY WAS OBTAINED THIS MORNING AND REVEALED: Cardiac and mediastinal contours appear stable. Stable right mid and lower lung infiltrates. No pleural effusion or pneumothorax. Right apex is excluded. HE IS CURRENTLY RECEIVING 1/2NS AT 100 ML/HR, LEVAQUIN 750MG IV DAILY, DUONEBS QID, ROBITUSSIN DM 10 ML PO QID, MOTRIN 800MG PO TID PRN, THE POTASSIUM AND MAGNESIUM PROTOCOLS, AND HIS HOME MEDICATIONS OF NORVASC, VITAMIN C, WELLBUTRIN, CYMBALTA, FERROUS GLUCONATE, AND REMERON WERE RESUMED. WE WILL CONTINUE WITH CURRENT PLAN OF CARE TODAY. OTHERWISE, WE WILL FOLLOW UP WITH AM LABS AND CONTINUE TO MONITOR. - Past Medical Family Social History Past Med/Fam/Surg Hx: No changes since H&P Allergies: Allergies No Known Drug Allergies Allergy (Verified 08/31/19 18:00) - Review of Systems ROS: No change since H&P - Vital Signs and I&O's Vital Signs: Temperature 98.3 F Pulse Rate [Left Brachial] 93 Pulse Rate [Right Radial] 83 Pulse Rate 88 Respiratory Rate 18 Blood Pressure [Left Arm] 123/74 Blood Pressure 122/50 O2 Sat by Pulse Oximetry 96 Intake and Output: Intake & Output 12/23/19 12/24/19 12/25/19 12/26/19 11:59 11:59 11:59 11:59 Intake Total 4064 / 4064 5518 / 5518 Output Total 1325 / 1325 2725 / 2725 Balance 2739 / 2739 2793 / 2793 - Physical Exam Oriented: Normal Eyes: Normal Ear: Normal Nose: Normal Throat: Normal Respiratory: Generalized, Diminished, Wheezes Cardiovascular: Normal : Normal Auscultation: Bowel Sounds: Normal Palpation: Normal Tenderness: Normal Skin: Normal Musculoskeletal: Normal Psychiatric: Normal Mood Description: Calm Affect: Normal Speech Pattern: Clear, Appropriate - Laboratory and Diagnostics Result Diagrams: 12/26/19 05:43 12/26/19 05:43 Labs: Laboratory WBC 10.5 X10^3/uL (3.6-10.0) H 12/26/19 05:43 RBC 4.64 X10^6/uL (4.7-6.0) L 12/26/19 05:43 Hgb 12.3 g/dL (13.5-18.0) L 12/26/19 05:43 Hct 37.2 % (42.0-54.0) L 12/26/19 05:43 MCV 80.1 fL (80.0-100.0) 12/26/19 05:43 MCH 26.6 pg (27.0-34.0) L 12/26/19 05:43 MCHC 33.2 g/dL (33.0-35.0) 12/26/19 05:43 RDW 16.5 % (11.6-16.5) 12/26/19 05:43 Plt Count 283 X10^3/uL (150.0-450.0) 12/26/19 05:43 MPV 7.7 fL (7.4-11.0) 12/26/19 05:43 Neut % (Auto) 66.0 % (42.0-75.0) 12/26/19 05:43 Lymph % (Auto) 19.6 % (21.0-51.0) L 12/26/19 05:43 [place] % (Auto) 6.2 % (0.0-13.0) 12/26/19 05:43 Eos % (Auto) 7.6 % (0.9-2.9) H 12/26/19 05:43 Baso % (Auto) 0.6 % (0.2-1.0) 12/26/19 05:43 Neut # (Auto) 6.9 x10^3/uL (2.2-4.8) H 12/26/19 05:43 Lymph # (Auto) 2.1 X10^3/uL (1.3-2.9) 12/26/19 05:43 [place] # (Auto) 0.6 x10^3/uL (0.3-0.8) 12/26/19 05:43 Eos # (Auto) 0.8 x10^3/uL (0.0-0.2) H 12/26/19 05:43 Baso # (Auto) 0.1 X10^3/uL (0.0-0.1) 12/26/19 05:43 Absolute Nucleated RBC 0.0 /100WBC 12/26/19 05:43 Sodium 143 mmol/L (136-145) 12/26/19 05:43 Corrected Sodium 144 mmol/L (136-145) 12/26/19 05:43 Potassium 3.5 mmol/L (3.5-5.1) 12/26/19 05:43 Chloride 107 mmol/L (98-107) 12/26/19 05:43 Carbon Dioxide 29.1 mmol/L (21-32) 12/26/19 05:43 BUN 11 mg/dL (7-18) 12/26/19 05:43 Creatinine 1.08 mg/dL (0.70-1.30) 12/26/19 05:43 Est GFR (MDRD) Af Amer > 60 (>60) 12/26/19 05:43 Est GFR (MDRD) Non-Af > 60 (>60) 12/26/19 05:43 Glucose 125 mg/dL (65-99) H 12/26/19 05:43 Calcium 9.3 mg/dL (8.5-10.1) 12/26/19 05:43 Corrected Calcium 10.2 mg/dL (8.5-10.1) H 12/26/19 05:43 Magnesium 2.0 mg/dL (1.7-2.9) 12/24/19 06:05 Ferritin 30 ng/mL (26-388) 12/24/19 06:05 Total Bilirubin 0.10 mg/dL (0.2-1.0) L 12/26/19 05:43 AST 9 Units/L (15-37) L 12/26/19 05:43 ALT 24 Units/L (12-78) 12/26/19 05:43 Alkaline Phosphatase 101 Units/L (46-116) 12/26/19 05:43 C-Reactive Protein 1.40 mg/L (0-3.0) 12/24/19 06:05 Total Protein 7.5 g/dL (6.4-8.2) 12/26/19 05:43 Albumin 2.9 g/dL (3.4-5.0) L 12/26/19 05:43 Globulin 4.6 g/dL (2.5-4.5) H 12/26/19 05:43 Albumin/Globulin Ratio 0.6 Ratio (1.1-2.1) L 12/26/19 05:43 Urine Opiates Screen Negative (NEG=<300) 12/24/19 07:30 Urine Methadone Screen Negative (NEG=<300) 12/24/19 07:30 Ur Barbiturates Screen Negative (NEG=<200) 12/24/19 07:30 Ur Phencyclidine Scrn Negative (NEG=<25) 12/24/19 07:30 Ur Amphetamines Screen Negative (NEG=<1000) 12/24/19 07:30 U Benzodiazepines Scrn Positive (NEG=<200) 12/24/19 07:30 Urine Cocaine Screen Negative (NEG=<300) 12/24/19 07:30 U Marijuana (THC) Screen Negative (NEG=<50) 12/24/19 07:30 Influenza Type A Ag Negative-presumptive (NEGATIVE) 12/24/19 06:05 Influenza Type B Ag Negative-presumptive (NEGATIVE) 12/24/19 06:05 SARS-CoV-2 (PCR) Negative (NEGATIVE) 12/24/19 07:50 - Plan (1) Pneumonia Status: Acute Qualifiers: Pneumonia type: due to unspecified organism Laterality: right Lung location: lower lobe of lung Qualified Code(s): J18.9 - Pneumonia, unspecified organism Plan: PNEUMONIA PROTOCOL WITH SUPPLEMENTAL OXYGEN NEEDED, 1/2NS AT 100 ML/HR, LEVAQUIN 750MG IV DAILY, DUONEBS QID, ROBITUSSIN DM 10 ML PO QID, MOTRIN 800MG PO TID PRN
[2019-12-26] MEDS: WELLBUTRIN SR 150 MG (BID) PO SCH ×2 (08:43→21:07)
[2019-12-26] MEDS: VITAMIN C PO SCH (08:43)
[2019-12-26] MEDS: NORVASC TAB 5 MG PO SCH (08:43)
[2019-12-26] MEDS: LEVAQUIN PREMIX IV 750 MG 750 MG/150 ML BAG IV SCH (08:43)
[2019-12-26] MEDS: VSL#3 PO SCH (08:44)
[2019-12-26] MEDS: ROBITUSSIN DM PO SCH ×4 (08:44→21:04)
--- NOTE | 2019-12-26 10:34 | PCM.PROG ---
Progress Note - Progress Note for Day of Date of Exam: 12/26/19 - Subjective Subjective: IS BEING TREATED FOR RIGHT MID AND LOWER LOBE PNEUMONIA. TODAY, HE IS ALERT AND ORIENTED, LYING IN BED ON MORNING ROUNDS. HE CONTINUES WITH COMPLAINTS OF A NON-PRODUCTIVE COUGH AND SHORTNESS OF BREATH. HE DOES ADMIT TO SLIGHT IMPROVEMENT IN SYMPTOMS SINCE ONE DAY PRIOR. ON EXAMIN ATION, HEART IS REGULAR IN RATE AND RHYTHM. SCATTERED WHEEZING NOTED TO AUSCULTATION OF LUNG MCKENNA. ABDOMEN IS ROUND, SOFT, AND NON-TENDER WITH NORMAL BOWEL SOUNDS NOTED TO ALL QUADRANTS. HIS VITALS THIS MORNING ARE: 98.3-93-18-96%-123/74. LABS WERE OBTAINED. ABNORMAL LAB VALUES INCLUDE THE FOLLOWING: WBC 10.5, RBC 4.64, HGB 12.3, HCT 37.2, GLUCOSE 125, TOTAL BILI 0.10, AST 9, ALBUMIN 2.9, GLOBULIN 4.6. BLOOD CULTURES ARE PENDING. A CHEST XRAY WAS OBTAINED THIS MORNING AND REVEALED: Cardiac and mediastinal contours appear within normal limits. Mild improvement in right perihilar infiltrate. No pleural effusion or pneumothorax. HE IS CURRENTLY RECEIVING 1/2NS AT 100 ML/HR, LEVAQUIN 750MG IV DAILY, DUONEBS QID, ROBITUSSIN DM 10 ML PO QID, MOTRIN 800MG PO TID PRN, THE POTASSIUM AND MAGNESIUM PROTOCOLS, AND HIS HOME MEDICATIONS OF NORVASC, VITAMIN C, WELLBUTRIN, CYMBALTA, FERROUS GLUCONATE, AND REMERON WERE RESUMED. WE WILL CONTINUE WITH CURRENT PLAN OF CARE TODAY. OTHERWISE, WE WILL FOLLOW UP WITH AM LABS AND CONTINUE TO MONITOR. - Past Medical Family Social History Past Med/Fam/Surg Hx: No changes since H&P Allergies: Allergies No Known Drug Allergies Allergy (Verified 08/31/19 18:00) - Review of Systems ROS: No change since H&P - Vital Signs and I&O's Vital Signs: Temperature 98.3 F Pulse Rate [Left Brachial] 93 Pulse Rate [Right Radial] 83 Pulse Rate 89 Respiratory Rate 18 Blood Pressure [Left Arm] 123/74 Blood Pressure 122/50 O2 Sat by Pulse Oximetry 98 Intake and Output: Intake & Output 12/23/19 12/24/19 12/25/19 12/26/19 11:59 11:59 11:59 11:59 Intake Total 4064 / 4064 5518 / 5518 Output Total 1325 / 1325 2725 / 2725 Balance 2739 / 2739 2793 / 2793 - Physical Exam Oriented: Normal Eyes: Normal Ear: Normal Nose: Normal Throat: Normal Respiratory: Generalized, Diminished, Wheezes Cardiovascular: Normal : Normal Auscultation: Bowel Sounds: Normal Palpation: Normal Tenderness: Normal Skin: Normal Musculoskeletal: Normal Psychiatric: Normal Mood Description: Calm Affect: Normal Speech Pattern: Clear, Appropriate - Laboratory and Diagnostics Result Diagrams: 12/26/19 05:43 12/26/19 05:43 Labs: 12/24/19 09:35 Blood Blood Culture - Preliminary 12/24/19 06:05 Blood Blood Culture - Preliminary Laboratory WBC 10.5 X10^3/uL (3.6-10.0) H 12/26/19 05:43 RBC 4.64 X10^6/uL (4.7-6.0) L 12/26/19 05:43 Hgb 12.3 g/dL (13.5-18.0) L 12/26/19 05:43 Hct 37.2 % (42.0-54.0) L 12/26/19 05:43 MCV 80.1 fL (80.0-100.0) 12/26/19 05:43 MCH 26.6 pg (27.0-34.0) L 12/26/19 05:43 MCHC 33.2 g/dL (33.0-35.0) 12/26/19 05:43 RDW 16.5 % (11.6-16.5) 12/26/19 05:43 Plt Count 283 X10^3/uL (150.0-450.0) 12/26/19 05:43 MPV 7.7 fL (7.4-11.0) 12/26/19 05:43 Neut % (Auto) 66.0 % (42.0-75.0) 12/26/19 05:43 Lymph % (Auto) 19.6 % (21.0-51.0) L 12/26/19 05:43 [place] % (Auto) 6.2 % (0.0-13.0) 12/26/19 05:43 Eos % (Auto) 7.6 % (0.9-2.9) H 12/26/19 05:43 Baso % (Auto) 0.6 % (0.2-1.0) 12/26/19 05:43 Neut # (Auto) 6.9 x10^3/uL (2.2-4.8) H 12/26/19 05:43 Lymph # (Auto) 2.1 X10^3/uL (1.3-2.9) 12/26/19 05:43 [place] # (Auto) 0.6 x10^3/uL (0.3-0.8) 12/26/19 05:43 Eos # (Auto) 0.8 x10^3/uL (0.0-0.2) H 12/26/19 05:43 Baso # (Auto) 0.1 X10^3/uL (0.0-0.1) 12/26/19 05:43 Absolute Nucleated RBC 0.0 /100WBC 12/26/19 05:43 Sodium 143 mmol/L (136-145) 12/26/19 05:43 Corrected Sodium 144 mmol/L (136-145) 12/26/19 05:43 Potassium 3.5 mmol/L (3.5-5.1) 12/26/19 05:43 Chloride 107 mmol/L (98-107) 12/26/19 05:43 Carbon Dioxide 29.1 mmol/L (21-32) 12/26/19 05:43 BUN 11 mg/dL (7-18) 12/26/19 05:43 Creatinine 1.08 mg/dL (0.70-1.30) 12/26/19 05:43 Est GFR (MDRD) Af Amer > 60 (>60) 12/26/19 05:43 Est GFR (MDRD) Non-Af > 60 (>60) 12/26/19 05:43 Glucose 125 mg/dL (65-99) H 12/26/19 05:43 Calcium 9.3 mg/dL (8.5-10.1) 12/26/19 05:43 Corrected Calcium 10.2 mg/dL (8.5-10.1) H 12/26/19 05:43 Magnesium 2.0 mg/dL (1.7-2.9) 12/24/19 06:05 Ferritin 30 ng/mL (26-388) 12/24/19 06:05 Total Bilirubin 0.10 mg/dL (0.2-1.0) L 12/26/19 05:43 AST 9 Units/L (15-37) L 12/26/19 05:43 ALT 24 Units/L (12-78) 12/26/19 05:43 Alkaline Phosphatase 101 Units/L (46-116) 12/26/19 05:43 C-Reactive Protein 1.40 mg/L (0-3.0) 12/24/19 06:05 Total Protein 7.5 g/dL (6.4-8.2) 12/26/19 05:43 Albumin 2.9 g/dL (3.4-5.0) L 12/26/19 05:43 Globulin 4.6 g/dL (2.5-4.5) H 12/26/19 05:43 Albumin/Globulin Ratio 0.6 Ratio (1.1-2.1) L 12/26/19 05:43 Urine Opiates Screen Negative (NEG=<300) 12/24/19 07:30 Urine Methadone Screen Negative (NEG=<300) 12/24/19 07:30 Ur Barbiturates Screen Negative (NEG=<200) 12/24/19 07:30 Ur Phencyclidine Scrn Negative (NEG=<25) 12/24/19 07:30 Ur Amphetamines Screen Negative (NEG=<1000) 12/24/19 07:30 U Benzodiazepines Scrn Positive (NEG=<200) 12/24/19 07:30 Urine Cocaine Screen Negative (NEG=<300) 12/24/19 07:30 U Marijuana (THC) Screen Negative (NEG=<50) 12/24/19 07:30 Influenza Type A Ag Negative-presumptive (NEGATIVE) 12/24/19 06:05 Influenza Type B Ag Negative-presumptive (NEGATIVE) 12/24/19 06:05 SARS-CoV-2 (PCR) Negative (NEGATIVE) 12/24/19 07:50 - Plan (1) Pneumonia Status: Acute Qualifiers: Pneumonia type: due to unspecified organism Laterality: right Lung location: lower lobe of lung Qualified Code(s): J18.9 - Pneumonia, unspecified organism Plan: PNEUMONIA PROTOCOL WITH SUPPLEMENTAL OXYGEN NEEDED, 1/2NS AT 100 ML/HR, LEVAQUIN 750MG IV DAILY, DUONEBS QID, ROBITUSSIN DM 10 ML PO QID, MOTRIN 800MG PO TID PRN
[2019-12-26] MEDS: FERROUS GLUCONATE PO SCH (13:39)
[2019-12-26] MEDS ORDERED: NS 1/2 1000 ML IV 1,000 ML IV ONE (20:29)
[2019-12-26] MEDS: CYMBALTA PO SCH (21:05)
[2019-12-26] MEDS: PATIENT'S HOME MEDICATION PO SCH (21:06)
[2019-12-26] MEDS: REMERON PO SCH (21:06)
[2019-12-26] MEDS: K-DUR TAB 20 MEQ PO PRN (21:08)
--- NOTE | 2019-12-27 06:37 | RAD ---
HISTORYSOBSTUDYPortable AP [id number] normal heart size with clear left lung. Infiltrate in the right perihilar area and right lower lobe again noted with slight interval increase. There is no asso ciated pleural fluid or extrapulmonary air.IMPRESSIONIncreasing pneumonic infiltrate in the right low er lung since 1 day earlier.Electronically signed by: ELSA DENT (Dec 27, 2019 06:35:47)
[2019-12-27 06:42] LABS: BASOPHILS # (AUTO) 0.1 X10^3/uL (0.0-0.1); BASOPHILS % (AUTO) 0.7 % (0.2-1.0); EOSINOPHILS # (AUTO) 0.8 x10^3/uL (0.0-0.2); EOSINOPHILS % (AUTO) 10.6 % (0.9-2.9); HEMATOCRIT 36.4 % (42.0-54.0); HEMOGLOBIN 11.9 g/dL (13.5-18.0); LYMPHOCYTES # (AUTO) 1.9 X10^3/uL (1.3-2.9); LYMPHOCYTES % (AUTO) 25.1 % (21.0-51.0); MEAN CORPUSCULAR HEMOGLOBIN 26.3 pg (27.0-34.0); MEAN CORPUSCULAR HGB CONC 32.7 g/dL (33.0-35.0); MEAN CORPUSCULAR VOLUME 80.4 fL (80.0-100.0); MEAN PLATELET VOLUME 7.9 fL (7.4-11.0); MONOCYTES # (AUTO) 0.5 x10^3/uL (0.3-0.8); NEUTROPHILS # (AUTO) 4.3 x10^3/uL (2.2-4.8); NEUTROPHILS % (AUTO) 57.6 % (42.0-75.0); PLATELET COUNT 291 X10^3/uL (150.0-450.0); RED BLOOD COUNT 4.52 X10^6/uL (4.7-6.0); RED CELL DISTRIBUTION WIDTH 16.5 % (11.6-16.5); WHITE BLOOD COUNT 7.5 X10^3/uL (3.6-10.0)
[2019-12-27 06:56] LABS: ALANINE AMINOTRANSFERASE 27 Units/L (12-78); ALBUMIN 2.8 g/dL (3.4-5.0); ALKALINE PHOSPHATASE 98 Units/L (46-116); ASPARTATE AMINO TRANSFERASE 16 Units/L (15-37); BLOOD UREA NITROGEN 9 mg/dL (7-18); CALCIUM 8.7 mg/dL (8.5-10.1); CARBON DIOXIDE 29.3 mmol/L (21-32); CHLORIDE 106 mmol/L (98-107); COR CA(FOR HYPOALB) 9.7 mg/dL (8.5-10.1); COR NA(FOR HYPERGLY) 143 mmol/L (136-145); CREATININE 1.07 mg/dL (0.70-1.30); SODIUM 142 mmol/L (136-145); TOTAL PROTEIN 7.4 g/dL (6.4-8.2); eGFR NON BLACK RACES > 60 (>60)
[2019-12-27] MEDS: DUONEB 0.5 MG/3 MG (3 mL) NEB SCH ×4 (09:04→20:15)
[2019-12-27] MEDS ORDERED: NS 1/2 1000 ML IV 1,000 ML IV ONE (09:36)
[2019-12-27] MEDS: LEVAQUIN PREMIX IV 750 MG 750 MG/150 ML BAG IV SCH (09:43)
[2019-12-27] MEDS: NORVASC TAB 5 MG PO SCH (09:43)
[2019-12-27] MEDS: ROBITUSSIN DM PO SCH ×4 (09:43→20:01)
[2019-12-27] MEDS: VITAMIN C PO SCH (09:44)
[2019-12-27] MEDS: WELLBUTRIN SR 150 MG (BID) PO SCH ×2 (09:44→20:01)
[2019-12-27] MEDS: VSL#3 PO SCH (09:44)
[2019-12-27] MEDS: NS 1/2 1000 ML IV 1,000 ML IV SCH ×2 (09:45→22:00)
[2019-12-27] MEDS: K-DUR TAB 20 MEQ PO PRN ×2 (16:47→23:01)
[2019-12-27] MEDS: PATIENT'S HOME MEDICATION PO SCH (20:00)
[2019-12-27] MEDS: CYMBALTA PO SCH (20:00)
[2019-12-27] MEDS: REMERON PO SCH (20:00)
--- NOTE | 2019-12-27 20:14 | PCM.PROG ---
Progress Note - Progress Note for Day of Date of Exam: 12/27/19 - Subjective Subjective: IS BEING TREATED FOR RIGHT MID AND LOWER LOBE PNEUMONIA. TODAY, HE IS ALERT AND ORIENTED, LYING IN BED ON MORNING ROUNDS. HE CONTINUES WITH COMPLAINTS OF A NON-PRODUCTIVE COUGH AND SHORTNESS OF BREATH. HE DOES ADMIT TO SLIGHT IMPROVEMENT IN SYMPTOMS SINCE ONE DAY PRIOR. ON EXAMIN ATION, HEART IS REGULAR IN RATE AND RHYTHM. SCATTERED WHEEZING NOTED TO AUSCULTATION OF LUNG MCKENNA. ABDOMEN IS ROUND, SOFT, AND NON-TENDER WITH NORMAL BOWEL SOUNDS NOTED TO ALL QUADRANTS. HIS VITALS THIS MORNING ARE: 97.7-80-18-97%-144/87. LABS WERE OBTAINED. ABNORMAL LAB VALUES INCLUDE THE FOLLOWING: RBC 4.52, HGB 11.9, HCT 36.4, POTASSIUM 3.2, GLUCOSE 126, ALBUMIN 2.8, GLOBULIN 4.6. BLOOD CULTURES ARE PENDING. A CHEST XRAY WAS OBTAINED THIS MORNING AND REVEALED: Increasing pneumonic infiltrate in the right lower lung since 1 day earlier HE IS CURRENTLY RECEIVING 1/2NS AT 100 ML/HR, LEVAQUIN 750MG IV DAILY, DUONEBS QID, ROBITUSSIN DM 10 ML PO QID, MOTRIN 800MG PO TID PRN, THE POTASSIUM AND MAGNESIUM PROTOCOLS, AND HIS HOME MEDICATIONS OF NORVASC, VITAMIN C, WELLBUTRIN, CYMBALTA, FERROUS GLUCONATE, AND REMERON WERE RESUMED. WE WILL CONTINUE WITH CURRENT PLAN OF CARE TODAY. OTHERWISE, WE WILL FOLLOW UP WITH AM LABS AND CONTINUE TO MONITOR. - Past Medical Family Social History Past Med/Fam/Surg Hx: No changes since H&P Allergies: Allergies No Known Drug Allergies Allergy (Verified 08/31/19 18:00) - Review of Systems ROS: No change since H&P - Vital Signs and I&O's Vital Signs: Temperature 97.6 F Pulse Rate [Left Brachial] 81 Pulse Rate [Right Radial] 83 Pulse Rate 80 Respiratory Rate 20 Blood Pressure [Left Arm] 154/90 Blood Pressure 122/50 O2 Sat by Pulse Oximetry 98 Intake and Output: Intake & Output 12/25/19 12/26/19 12/27/19 12/28/19 11:59 11:59 11:59 11:59 Intake Total 4064 / 4064 5518 / 5518 3838 / 3838 1909 / 1909 Output Total 1325 / 1325 2725 / 2725 3150 / 3150 1400 / 1400 Balance 2739 / 2739 2793 / 2793 688 / 688 510 / 510 - Physical Exam Oriented: Normal Eyes: Normal Ear: Normal Nose: Normal Throat: Normal Respiratory: Generalized, Diminished, Wheezes Cardiovascular: Normal : Normal Auscultation: Bowel Sounds: Normal Tenderness: Normal Skin: Normal Musculoskeletal: Normal Psychiatric: Normal Mood Description: Calm Affect: Normal Speech Pattern: Clear - Laboratory and Diagnostics Result Diagrams: 12/27/19 05:25 12/27/19 05:25 Labs: 12/24/19 09:35 Blood Blood Culture - Preliminary 12/24/19 06:05 Blood Blood Culture - Preliminary Laboratory WBC 7.5 X10^3/uL (3.6-10.0) 12/27/19 05:25 RBC 4.52 X10^6/uL (4.7-6.0) L 12/27/19 05:25 Hgb 11.9 g/dL (13.5-18.0) L 12/27/19 05:25 Hct 36.4 % (42.0-54.0) L 12/27/19 05:25 MCV 80.4 fL (80.0-100.0) 12/27/19 05:25 MCH 26.3 pg (27.0-34.0) L 12/27/19 05:25 MCHC 32.7 g/dL (33.0-35.0) L 12/27/19 05:25 RDW 16.5 % (11.6-16.5) 12/27/19 05:25 Plt Count 291 X10^3/uL (150.0-450.0) 12/27/19 05:25 MPV 7.9 fL (7.4-11.0) 12/27/19 05:25 Neut % (Auto) 57.6 % (42.0-75.0) 12/27/19 05:25 Lymph % (Auto) 25.1 % (21.0-51.0) 12/27/19 05:25 [place] % (Auto) 6.0 % (0.0-13.0) 12/27/19 05:25 Eos % (Auto) 10.6 % (0.9-2.9) H 12/27/19 05:25 Baso % (Auto) 0.7 % (0.2-1.0) 12/27/19 05:25 Neut # (Auto) 4.3 x10^3/uL (2.2-4.8) 12/27/19 05:25 Lymph # (Auto) 1.9 X10^3/uL (1.3-2.9) 12/27/19 05:25 [place] # (Auto) 0.5 x10^3/uL (0.3-0.8) 12/27/19 05:25 Eos # (Auto) 0.8 x10^3/uL (0.0-0.2) H 12/27/19 05:25 Baso # (Auto) 0.1 X10^3/uL (0.0-0.1) 12/27/19 05:25 Absolute Nucleated RBC 0.0 /100WBC 12/27/19 05:25 Sodium 142 mmol/L (136-145) 12/27/19 05:25 Corrected Sodium 143 mmol/L (136-145) 12/27/19 05:25 Potassium 3.2 mmol/L (3.5-5.1) L 12/27/19 05:25 Chloride 106 mmol/L (98-107) 12/27/19 05:25 Carbon Dioxide 29.3 mmol/L (21-32) 12/27/19 05:25 BUN 9 mg/dL (7-18) 12/27/19 05:25 Creatinine 1.07 mg/dL (0.70-1.30) 12/27/19 05:25 Est GFR (MDRD) Af Amer > 60 (>60) 12/27/19 05:25 Est GFR (MDRD) Non-Af > 60 (>60) 12/27/19 05:25 Glucose 126 mg/dL (65-99) H 12/27/19 05:25 Calcium 8.7 mg/dL (8.5-10.1) 12/27/19 05:25 Corrected Calcium 9.7 mg/dL (8.5-10.1) 12/27/19 05:25 Magnesium 2.0 mg/dL (1.7-2.9) 12/27/19 05:25 Ferritin 30 ng/mL (26-388) 12/24/19 06:05 Total Bilirubin 0.20 mg/dL (0.2-1.0) 12/27/19 05:25 AST 16 Units/L (15-37) 12/27/19 05:25 ALT 27 Units/L (12-78) 12/27/19 05:25 Alkaline Phosphatase 98 Units/L (46-116) 12/27/19 05:25 C-Reactive Protein 1.40 mg/L (0-3.0) 12/24/19 06:05 Total Protein 7.4 g/dL (6.4-8.2) 12/27/19 05:25 Albumin 2.8 g/dL (3.4-5.0) L 12/27/19 05:25 Globulin 4.6 g/dL (2.5-4.5) H 12/27/19 05:25 Albumin/Globulin Ratio 0.6 Ratio (1.1-2.1) L 12/27/19 05:25 Urine Opiates Screen Negative (NEG=<300) 12/24/19 07:30 Urine Methadone Screen Negative (NEG=<300) 12/24/19 07:30 Ur Barbiturates Screen Negative (NEG=<200) 12/24/19 07:30 Ur Phencyclidine Scrn Negative (NEG=<25) 12/24/19 07:30 Ur Amphetamines Screen Negative (NEG=<1000) 12/24/19 07:30 U Benzodiazepines Scrn Positive (NEG=<200) 12/24/19 07:30 Urine Cocaine Screen Negative (NEG=<300) 12/24/19 07:30 U Marijuana (THC) Screen Negative (NEG=<50) 12/24/19 07:30 Influenza Type A Ag Negative-presumptive (NEGATIVE) 12/24/19 06:05 Influenza Type B Ag Negative-presumptive (NEGATIVE) 12/24/19 06:05 SARS-CoV-2 (PCR) Negative (NEGATIVE) 12/24/19 07:50 - Plan (1) Pneumonia Status: Acute Qualifiers: Pneumonia type: due to unspecified organism Laterality: right Lung location: lower lobe of lung Qualified Code(s): J18.9 - Pneumonia, unspecified organism Plan: PNEUMONIA PROTOCOL WITH SUPPLEMENTAL OXYGEN NEEDED, 1/2NS AT 100 ML/HR, LEVAQUIN 750MG IV DAILY, DUONEBS QID, ROBITUSSIN DM 10 ML PO QID, MOTRIN 800MG PO TID PRN
--- NOTE | 2019-12-28 06:39 | RAD ---
HISTORYSOBSTUDYCHEST, 1 [id number] within the right upper and lower lung are again noted, the infiltrate within the right perihilar lower lung appear slightly less dense and likely decreased from prior examination. The left lung is clear. No pleural effusion or pneumothorax. Trachea is midline. Heart size is normal.IMPRESSIONPersistent multifocal airspace opacities within the right lung, there appears to be slight clearing of the infiltrate within the right perihilar lower lung.Electronically signed by: BARBARA CORTEZ (Dec 28, 2019 06:38:18)
[2019-12-28 07:11] LABS: BASOPHILS % (AUTO) 0.7 % (0.2-1.0); EOSINOPHILS # (AUTO) 0.8 x10^3/uL (0.0-0.2); EOSINOPHILS % (AUTO) 10.6 % (0.9-2.9); HEMATOCRIT 37.2 % (42.0-54.0); HEMOGLOBIN 12.4 g/dL (13.5-18.0); LYMPHOCYTES # (AUTO) 2.1 X10^3/uL (1.3-2.9); LYMPHOCYTES % (AUTO) 28.8 % (21.0-51.0); MEAN CORPUSCULAR HEMOGLOBIN 26.3 pg (27.0-34.0); MEAN CORPUSCULAR HGB CONC 33.3 g/dL (33.0-35.0); MEAN CORPUSCULAR VOLUME 79.2 fL (80.0-100.0); MEAN PLATELET VOLUME 7.3 fL (7.4-11.0); MONOCYTES # (AUTO) 0.6 x10^3/uL (0.3-0.8); MONOCYTES % (AUTO) 8.1 % (0.0-13.0); NEUTROPHILS # (AUTO) 3.8 x10^3/uL (2.2-4.8); NEUTROPHILS % (AUTO) 51.8 % (42.0-75.0); PLATELET COUNT 322 X10^3/uL (150.0-450.0); RED BLOOD COUNT 4.69 X10^6/uL (4.7-6.0); RED CELL DISTRIBUTION WIDTH 16.2 % (11.6-16.5); WHITE BLOOD COUNT 7.3 X10^3/uL (3.6-10.0)
[2019-12-28 07:15] LABS: ALANINE AMINOTRANSFERASE 32 Units/L (12-78); ALBUMIN 2.9 g/dL (3.4-5.0); ALKALINE PHOSPHATASE 106 Units/L (46-116); ASPARTATE AMINO TRANSFERASE 18 Units/L (15-37); BLOOD UREA NITROGEN 12 mg/dL (7-18); CARBON DIOXIDE 27.6 mmol/L (21-32); CHLORIDE 107 mmol/L (98-107); COR CA(FOR HYPOALB) 9.9 mg/dL (8.5-10.1); CREATININE 1.05 mg/dL (0.70-1.30); SODIUM 144 mmol/L (136-145); TOTAL PROTEIN 7.8 g/dL (6.4-8.2); eGFR NON BLACK RACES > 60 (>60)
[2019-12-28] MEDS: LEVAQUIN PREMIX IV 750 MG 750 MG/150 ML BAG IV SCH (08:07)
[2019-12-28] MEDS: NORVASC TAB 5 MG PO SCH (08:08)
[2019-12-28] MEDS: ROBITUSSIN DM PO SCH (08:08)
[2019-12-28] MEDS: VITAMIN C PO SCH (08:09)
[2019-12-28] MEDS: WELLBUTRIN SR 150 MG (BID) PO SCH (08:09)
[2019-12-28] MEDS: VSL#3 PO SCH (08:09)
[2019-12-28] MEDS: DUONEB 0.5 MG/3 MG (3 mL) NEB SCH (08:59)
[2019-12-28 09:30] VITALS: BP 157/83
== END 2019-12-28 10:55 | disposition home or self-care (01) | DRG 195 ==
LOC: ER 05:16 → MED/SURG 10:00
PROVIDERS: ADMIT Internal Medicine; ATTEND Internal Medicine
DX: I10 Essential (primary) hypertension; J18.8 Other pneumonia, unspecified organism; R06.02 Shortness of breath; B95.61 Methicillin susceptible Staphylococcus aureus infection as the cause of diseases classified elsewhere; Z01.84 Encounter for antibody response examination; Z20.828 Contact with and (suspected) exposure to other viral communicable diseases; F32.89 Other specified depressive episodes; F43.10 Post-traumatic stress disorder, unspecified